=== PATIENT | male | born 1960 | race Caucasian/White ===

== ENCOUNTER → 2019-12-10 | Day surgery (SDC) | payer BC ==
[2019-12-09 10:30] VITALS: BMI 26.2
[~2019-12-10] MED LIST: MIDAZOLAM 2 MG/2 ML VIAL IV ONE; SODIUM CHLORIDE 0.9% 500 ML 500 ML IV ONE; fentaNYL (PF) 50 MCG/ML 2 ML AMP IV ONE; fentaNYL (PF) 50 MCG/ML 2 ML AMP ONE
[2019-12-10 08:03] VITALS: TEMP 98.3
[2019-12-10 08:09] LABS: Prothrombin Time 19.4 sec (9.0-12.0)
[2019-12-10] MEDS: BENZOCAINE SPRAY 1 CAN MUCOUS MEM ONE ×2 (08:41→08:59)
[2019-12-10 09:10] VITALS: RESP 16
--- NOTE | 2019-12-10 09:43 | ECHOT ---
TRANSESOPHAGEAL ECHOCARDIOGRAM DATE OF SERVICE: December 10, 2019 PERFORMING PHYSICIAN: Fili Vines MD. PROCEDURE PERFORMED: Transesophageal echocardiogram. INDICATION: This is a pleasant 59-year-old gentleman with atrial flutter, who is going to undergo ablation by Dr. Núñez in the next few weeks. The transesophageal echocardiogram to rule out any left atrial appendage thrombus. COMPLICATION: None. LEVEL OF SEDATION: Moderate with a sedation length of 15 minutes. PROCEDURE DESCRIPTION: After obtaining an informed consent, the patient was brought to the transesophageal echocardiogram suite. A pulse oximetry and heart rate monitors were attached to the patient. Subsequently, a bite guard was placed. The transesophageal echocardiogram probe was advanced through the bite guard to the mid esophagus where 2D echocardiogram images, as well as color Doppler, pulse Doppler, and continuous-wave Doppler were obtained from various angles. Particular attention was paid to the appendage. The procedure was completed without any complication. FINDINGS: The left ventricular dimension and systolic function appeared to be within normal limits. The ejection fraction appeared to be in the range of 50% to 55%. Right ventricle appeared to be of normal size and function. The left atrium appeared to be dilated. The aortic valve is trileaflet valve without stenosis or regurgitation. The mitral valve appeared to be repaired valve with evidence of moderate mitral regurgitation in anteriorly directed jet. The tricuspid valve appeared to be also regurgitant in the moderate range. The pulmonary artery systolic pressure was calculated to be 38 mmHg. CONCLUSION: 1. Intact left atrial appendage without any evidence of thrombus. 2. Intact interatrial septum without any evidence of shunt. 3. Severely dilated left atrium. 4. Normal left ventricular dimension and systolic function. 5. Normal right ventricular dimension and systolic function. 6. Trileaflet aortic valve without stenosis or regurgitation. 7. Repaired mitral valve with evidence of moderate mitral regurgitation in anteriorly directed jet. 8. Moderate tricuspid regurgitation. 9. Mild pulmonary hypertension. 10.Normal aortic root dimension. 11.No evidence of pericardial effusion. MMODL / IJN: [id number] /
[2019-12-10 10:04] VITALS: BP 115/79; PULSE 74
== END ==
LOC: CATHCVL 07:26
PROVIDERS: ATTEND Internal Medicine Interventional Cardiology
DX: I48.3 Typical atrial flutter (principal); I08.1 Rheumatic disorders of both mitral and tricuspid valves; I27.20 Pulmonary hypertension, unspecified; Z98.890 Other specified postprocedural states; Z82.49 Family history of ischemic heart disease and other diseases of the circulatory system
CPT/HCPCS: 93312; 93320; 93325; 85610; J2250; J3010

== ENCOUNTER 2019-12-13 02:17 | Observation (INO) | payer BC ==
[2019-12-13] MEDS ORDERED: RX INFO: IV CONTRAST WAS GIVEN 1 EACH MISC MISCELLANE PRN (02:22)
[2019-12-13 02:46] LABS: Basophils % (A) 0 %; Eosinophils # (A) 0.1 k/uL (0-0.7); Eosinophils % (A) 1 %; HCT 41.3 % (39.0-53.0); HGB 13.8 gm/dL (13.0-17.5); Lymphocytes # (A) 1.3 k/uL (1.0-4.8); Lymphocytes % (A) 13 %; MCH 29.8 pg (25.0-35.0); MCHC 33.3 g/dL (31.0-37.0); MCV 89.4 fL (80.0-100.0); Mean Platelet Volume 6.8; Monocytes # (A) 0.5 k/uL (0-1.0); Monocytes % (A) 5 %; Neutrophils % (A) 79 %; Platelet Count 221 k/uL (150-450); RBC 4.62 m/uL (4.30-5.90); RDW 13.3 % (11.5-15.5); WBC 10.1 k/uL (3.8-10.6)
[2019-12-13 02:55] LABS: INR 2.2 (<1.2); Partial Thromboplastin Time 33.4 sec (22.0-30.0); Prothrombin Time 21.7 sec (9.0-12.0)
--- NOTE | 2019-12-13 03:03 | CT ---
EXAMINATION TYPE: CT chest w con DATE OF EXAM: 12/13/2019 COMPARISON: None HISTORY: chest pain CT DLP: 412.7 mGycm Automated exposure control for dose reduction was used. CONTRAST: Performed with IV Contrast, patient injected with 100 mL of Isovue 300. Multiple axial sections were obtained from the thoracic inlet to the diaphragm with intravenous contr ast. There is coarse interstitial density and atelectasis at the posterior lung bases. There is small righ t pleural effusion. There is no evidence of a pulmonary mass. There is no mediastinal adenopathy. The re are no hilar masses. Heart size is top normal. There is no pericardial effusion. Thoracic aorta sh ows no aneurysm or dissection. There is spurring in the thoracic spine. The ribs appear intact. Upper abdominal soft tissues are int act. There is 2 cm cyst lower pole right kidney. Appendix appears normal. IMPRESSION: Interstitial infiltrates and atelectasis at the posterior lung bases. Small right pleural effusion. C ardiomegaly.
[2019-12-13 03:04] LABS: ALT 14 U/L (4-49); AST 28 U/L (17-59); African American GFR (CKD) >90 (>60 ml/min/1.73 sqM); Alkaline Phosphatase 59 U/L (38-126); Anion Gap 6 mmol/L; Blood Urea Nitrogen 18 mg/dL (9-20); Calcium 8.7 mg/dL (8.4-10.2); Carbon Dioxide 31 mmol/L (22-30); Chloride 100 mmol/L (98-107); Glucose 117 mg/dL (74-99); Magnesium 1.8 mg/dL (1.6-2.3); Non-African American GFR(CKD) >90 (>60 ml/min/1.73 sqM); Potassium 3.4 mmol/L (3.5-5.1); Sodium 137 mmol/L (137-145); Total Bilirubin 1.1 mg/dL (0.2-1.3); Total Protein 6.8 g/dL (6.3-8.2)
[2019-12-13] MEDS ORDERED: NALOXONE 0.4 MG/ML 1 ML VIAL IV PRN (03:58)
--- NOTE | 2019-12-13 03:58 | ED ---
Chest Pain HPI - General Chief Complaint: Chest Pain Stated Complaint: Postop chest pain following ablation Time Seen by Provider: 12/13/19 02:25 Source: patient - History of Present Illness Initial Comments: The patient is a 58-year-old male with past history of A. fib who had a recent ablation done on by Dr. Rowe. States that this was his second ablation. He went home and had some mild chest discomfort however he states that the pain became worse today. States that it gets worse when he is taking a deep breath or lying flat. He got a hold of Dr. Nguyen and told him about his symptoms. Dr. Nguyen informed him that if he had worsening chest pain he should go in to the emergency room. He denies any shortness of breath. Did not take any medications for his pain. The patient is on Coumadin for his history of A. fib. States he's been taking the medications as directed. He denies any calf pain or swelling. No history of DVT or PE. No ripping or tearing sensation to his back. Denies hemoptysis or hematemesis. No fevers or chills. There are no alleviating, precipitating or modifying factors - Related Data Home Medications Medication Instructions Recorded Confirmed Warfarin [Coumadin] 5 mg PO HS 12/13/19 12/13/19 Allergies Allergy/AdvReac Type Severity Reaction Status Date / Time No Known Allergies Allergy Verified 12/13/19 12:41 Review of Systems ROS Statement: Those systems with pertinent positive or pertinent negative responses have been documented in the HPI. ROS Other: All systems not noted in ROS Statement are negative. EKG Findings - EKG Comments: EKG Findings:: EKG demonstrates a sinus tachycardia with a ventricular rate of 56. NJ interval 154. QRS 86. QTC of 441. No acute ST segment elevations or depressions concerning for ischemic changes. Q wave in inferior leads 3. Past Medical History Past Medical History: Atrial Flutter Additional Past Medical History / Comment(s): States irregular H/R. History of Any Multi-Drug Resistant Organisms: None Reported Past Surgical History: Ablation Additional Past Surgical History / Comment(s): Mitral valve repair. Past Anesthesia/Blood Transfusion Reactions: No Reported Reaction Past Psychological History: No Psychological Hx Reported Smoking Status: Never smoker Past Alcohol Use History: Occasional Past Drug Use History: None Reported - Past Family History Mother Family Medical History: No Reported History General Exam General appearance: alert, in no apparent distress Head exam: Present: atraumatic, normocephalic, normal inspection Eye exam: Present: normal appearance, PERRL, EOMI. Absent: scleral icterus, conjunctival injection, periorbital swelling ENT exam: Present: normal exam, mucous membranes moist Neck exam: Present: normal inspection. Absent: tenderness, meningismus, lymphadenopathy Respiratory exam: Present: normal lung sounds bilaterally. Absent: respiratory distress, wheezes, rales, rhonchi, stridor Cardiovascular Exam: Present: regular rate, normal rhythm, normal heart sounds. Absent: systolic murmur, diastolic murmur, rubs, gallop, clicks GI/Abdominal exam: Present: soft, normal bowel sounds. Absent: distended, tenderness, guarding, rebound, rigid Extremities exam: Present: normal inspection, full ROM, normal capillary refill. Absent: tenderness, pedal edema, joint swelling, calf tenderness Back exam: Present: normal inspection Neurological exam: Present: alert, oriented X3, CN II-XII intact Psychiatric exam: Present: normal affect, normal mood Skin exam: Present: warm, dry, intact, normal color. Absent: rash Course Vital Signs 12/13/19 12/13/19 12/13/19 02:24 02:57 04:00 Temperature 97.6 F Pulse Rate 56 L 59 L 58 L Pulse Rate [ [place] Loader ] Respiratory 18 14 16 Rate Blood Pressure 135/77 120/75 117/77 Blood Pressure [Right Arm Supine] O2 Sat by Pulse 98 100 98 Oximetry 12/13/19 12/13/19 12/13/19 05:29 07:57 08:00 Temperature 98.5 F Pulse Rate 63 Pulse Rate [ 63 63 [place] Load[place] ] Respiratory 12 18 Rate Blood Pressure 112/76 Blood Pressure 116/80 [Right Arm Supine] O2 Sat by Pulse 94 L 96 Oximetry 12/13/19 12/13/19 12/13/19 10:24 12:00 13:48 Temperature 98.5 F 98.5 F 97.7 F Pulse Rate 67 70 Pulse Rate [ 63 [place] Loader ] Respiratory 18 18 18 Rate Blood Pressure 116/70 112/80 Blood Pressure 116/80 [Right Arm Supine] O2 Sat by Pulse 96 97 100 Oximetry 12/13/19 16:35 Temperature 98.6 F Pulse Rate 68 Pulse Rate [ [place] Loader ] Respiratory 18 Rate Blood Pressure 116/74 Blood Pressure [Right Arm Supine] O2 Sat by Pulse 100 Oximetry Chest Pain MDM - MDM Upon arrival the patient is placed into room 5. A thorough history and physical exam was performed. Peripheral IV was established. I did offer the patient something for pain control however he states that he was currently asymptomatic. Laboratory studies demonstrated a INR of 2.2 which is therapeutic for the patient. He has a history of mitral valve repair but no replacement. Troponin is elevated at 0.315. CT of the chest is performed to evaluate for fistula which demonstrates interstitial infiltrates and atelectasis at the posterior lung bases. Small right pleural effusion with cardiomegaly. I discussed results with the patient. I did recommend hospital admission for echo and cardiology consultation. The patient agreed to this. He is currently awaiting a bed on the floor in stable condition Disposition Clinical Impression: Chest pain, Status post ablation of atrial fibrillation, NSTEMI (non-ST elevated myocardial infarction) Disposition: ADMITTED IP TO THIS HOSP Condition: Stable Is patient prescribed a controlled substance at d/c from ED?: No Decision to Admit Reason: Admit from EC Decision Date: 12/13/19 Decision Time: 03:58
[2019-12-13 07:59] VITALS: RESP 18
[2019-12-13] MEDS ORDERED: ACETAMINOPHEN TAB 500 MG TAB PO PRN (09:52)
--- NOTE | 2019-12-13 12:19 | P.CRDCN ---
History of Present Illness Consult date: 12/13/19 Chief complaint: Chest pain History of present illness: This is a very pleasant 59-year-old gentleman with a past medical history significant for atrial flutter, known mitral valve disease and status post repair, who underwent 2 days ago and ablation of atrial flutter. The patient presented to the hospital complaining of chest discomfort. He described the discomfort as sharp, in the mid of the chest, without any radiation, and clearly stated that is worse with the deep breath and better with resting. The EKG showed sinus rhythm with sinus bradycardia and diffuse nonspecific ST and T wave abnormalities. No prior history of coronary artery disease or coronary revascularization. The cardiac enzymes came in to be slightly abnormal but that could be related to the ablation itself. Currently the patient is chest pain- free after he was given Tylenol. The patient was seen in the emergency department. The rest of the blood work came in to be unremarkable. The patient stated that he has been up and around walking in the hallway and he is completely asymptomatic and would like to be discharged home. I am going to obtain an echocardiogram was Doppler of chest to rule out any pericardial effusion, if the echo came in to be unremarkable the patient possibly can be discharged home and follow-up with Dr. Núñez. Past Medical History Past Medical History: Atrial Flutter Additional Past Medical History / Comment(s): States irregular H/R. History of Any Multi-Drug Resistant Organisms: None Reported Past Surgical History: Ablation Additional Past Surgical History / Comment(s): Mitral valve repair 2003. ablation 12/11/2019 Dr. Núñez Past Anesthesia/Blood Transfusion Reactions: No Reported Reaction Smoking Status: Never smoker - Past Family History Mother Family Medical History: No Reported History Medications and Allergies Home Medications Medication Instructions Recorded Confirmed Type Warfarin [Coumadin] 5 mg PO DAILY@1800 tab 12/12/19 12/13/19 Rx Allergies Allergy/AdvReac Type Severity Reaction Status Date / Time No Known Allergies Allergy Verified 12/10/19 07:46 Physical Exam Vitals: Vital Signs Temp Pulse Pulse Resp BP BP Pulse Ox 12/13/19 12:00 98.5 F 67 18 116/70 97 12/13/19 10:24 98.5 F 63 18 116/80 96 12/13/19 08:00 63 12/13/19 07:57 98.5 F 63 18 116/80 96 12/13/19 05:29 63 12 112/76 94 L 12/13/19 04:00 58 L 16 117/77 98 12/13/19 02:57 59 L 14 120/75 100 12/13/19 02:24 97.6 F 56 L 18 135/77 98 Intake and Output 12/12/19 12/13/19 12/13/19 22:59 06:59 14:59 Other: Weight 77.111 kg 77.111 kg - Constitutional General appearance: no acute distress - Respiratory Respiratory: bilateral: CTA - Cardiovascular Rhythm: regular Heart sounds: normal: S1, S2 Abnormal Heart Sounds: systolic murmur Results 12/13/19 02:30 12/13/19 02:30 Cardiac Enzymes 12/13/19 12/13/19 12/13/19 Range/Units 02:30 02:30 07:51 AST 28 (17-59) U/L Troponin I 0.315 H* 0.231 H* (0.000-0.034) ng/mL Coagulation 12/13/19 Range/Units 02:30 PT 21.7 H (9.0-12.0) sec APTT 33.4 H (22.0-30.0) sec CBC 12/13/19 Range/Units 02:30 WBC 10.1 (3.8-10.6) k/uL RBC 4.62 (4.30-5.90) m/uL Hgb 13.8 (13.0-17.5) gm/dL Hct 41.3 (39.0-53.0) % Plt Count 221 (150-450) k/uL Comprehensive Metabolic Panel 12/13/19 Range/Units 02:30 Sodium 137 (137-145) mmol/L Potassium 3.4 L (3.5-5.1) mmol/L Chloride 100 (98-107) mmol/L Carbon Dioxide 31 H (22-30) mmol/L BUN 18 (9-20) mg/dL Creatinine 0.94 (0.66-1.25) mg/dL Glucose 117 H (74-99) mg/dL Calcium 8.7 (8.4-10.2) mg/dL AST 28 (17-59) U/L ALT 14 (4-49) U/L Alkaline Phosphatase 59 (38-126) U/L Total Protein 6.8 (6.3-8.2) g/dL Albumin 4.0 (3.5-5.0) g/dL Current Medications Generic Name Dose Route Start Last Admin Trade Name Marcos PRN Reason Stop Dose Admin Acetaminophen 1,000 mg 12/13/19 09:52 12/13/19 10:01 Tylenol Tab PO 1,000 mg Q6HR PRN Administration Fever and/ or Pain Miscellaneous Information 1 each 12/13/19 02:22 12/13/19 02:59 Rx Info: Iv Contrast Was Given MISCELLANE 12/15/19 02:24 1 each DAILY PRN Administration Per Protocol Naloxone HCl 0.2 mg 12/13/19 03:58 Narcan IV Q2M PRN Opioid Reversal Warfarin Sodium 5 mg 12/13/19 18:00 Coumadin PO DAILY@1800 [facility] Protocol Intake and Output 12/12/19 12/13/19 12/13/19 22:59 06:59 14:59 Other: Weight 77.111 kg 77.111 kg Patient Weight 12/14/19 06:59 Weight 77.111 kg 12/13/19 02:30 12/13/19 02:30 Assessment and Plan Assessment: Assessment #1 atypical chest discomfort #2 status post atrial flutter ablation #3 history of mitral valve repair Plan #1 be abnormal troponin is likely related to the ablation #2 rule out pericardial effusion. I will obtain an echocardiogram was Doppler #3 if the patient continues to be asymptomatic and no evidence of pericardial effusion by echo he possibly can be discharged home
--- NOTE | 2019-12-13 15:56 | ECHOF ---
Referral Reason:chest pain post ablation MEASUREMENTS -------- HEIGHT: 170.2 cm WEIGHT: 77.1 kg BP: 121/75 RVIDd: 2.9 cm (< 3.3) IVSd: 1.1 cm (0.6 - 1.1) LVIDd: 4.1 cm (3.9 - 5.3) LVPWd: 1.2 cm (0.6 - 1.1) IVSs: 1.6 cm LVIDs: 2.4 cm LVPWs: 1.7 cm LAESV Index (A-L): 31.37 ml/m Ao Diam: 3.2 cm (2.0 - 3.7) AV Cusp: 2.0 cm (1.5 - 2.6) MV E Martin: 1.49 m/s MV DecT: 327 ms MV A Martin: 0.70 m/s MV E/A Ratio: 2.14 RAP: 5.00 mmHg RVSP: 28.88 mmHg FINDINGS -------- Sinus rhythm. This was a technically good study. The left ventricular size is normal. There is mild concentric left ventricular hypertrophy. Overa ll left ventricular systolic function is low-normal with, an EF between 50 - 55 %. Septal wall twan on is delayed and consistent with prior cardiac surgery. The right ventricle is normal in size. LA is midly dilated 29-33ml/m2. The right atrial size is normal. Interatrial and interventricular septum intact. The aortic valve is trileaflet and appears structurally normal. There is no evidence of aortic regu rgitation. There is no evidence of aortic stenosis. Mild mitral regurgitation is present. MV Repair. Mild tricuspid regurgitation present. There is no evidence of pulmonary hypertension. The right v entricular systolic pressure, as measured by Doppler, is 28.88mmHg. Trace/mild (physiologic) pulmonic regurgitation. The aortic root size is normal. IVC Not well visulized. There is no pericardial effusion. CONCLUSIONS -------- 1. Sinus rhythm. 2. This was a technically good study. 3. The left ventricular size is normal. 4. There is mild concentric left ventricular hypertrophy. 5. Overall left ventricular systolic function is low-normal with, an EF between 50 - 55 %. 6. Septal wall motion is delayed and consistent with prior cardiac surgery. 7. The right ventricle is normal in size. 8. LA is midly dilated 29-33ml/m2. 9. The right atrial size is normal. 10. Interatrial and interventricular septum intact. 11. The aortic valve is trileaflet and appears structurally normal. 12. There is no evidence of aortic regurgitation. 13. There is no evidence of aortic stenosis. 14. Mild mitral regurgitation is present. 15. MV Repair. 16. Mild tricuspid regurgitation present. 17. There is no evidence of pulmonary hypertension. 18. The right ventricular systolic pressure, as measured by Doppler, is 28.88mmHg. 19. Trace/mild (physiologic) pulmonic regurgitation. 20. The aortic root size is normal. 21. IVC Not well visulized. 22. There is no pericardial effusion. PAPERHANGER SUPERVISOR: Phyllis Perdue RDCS
--- NOTE | 2019-12-13 16:35 | P.HPIM ---
History of Present Illness Present of pleasant 59-year-old gentleman came in with compensative chest pain which she is sharp no radiation nonradiating mild worsening with deep breathing not in not associated with food denied any lightheadedness diaphoresis ass ociated with that. Patient denied any cough or shortness of breath chest x-ray did not show any pneumonia. Patient has the history of atrial flutter patient underwent the ablation couple days ago. Ruled out acute cardio syndromes patient does have mildly elevated troponins which is believed secondary to ablation EKG did not show any acute ST-T wave changes cardiology recommended an echocardiogram with doesn't show any wall significant wall motion abnormalities or pericardial effusion patient can be discharged. Echocardiogram did not show any significant abnormality. And normal ejection fraction. Patient will be discharged on as needed Tylenol for pain patient pain is controlled with Tylenol appears to be musculoskeletal Review of Systems REVIEW OF SYSTEMS: CONSTITUTIONAL: No fever, no malaise, no fatigue. HEENT: No recent visual problems or hearing problems. Denied any sore throat. CARDIOVASCULAR: As mentioned in HPI PULMONARY: No shortness of breath, no cough, no hemoptysis. GASTROINTESTINAL: No diarrhea, no nausea, no vomiting, no abdominal pain. NEUROLOGICAL: No headaches, no weakness, no numbness. HEMATOLOGICAL: Denies any bleeding or petechiae. GENITOURINARY: Denies any burning micturition, frequency, or urgency. MUSCULOSKELETAL/RHEUMATOLOGICAL: Denies any joint pain, swelling, or any muscle pain. ENDOCRINE: Denies any polyuria or polydipsia. The rest of the 14-point review of systems is negative. Past Medical History Past Medical History: Atrial Flutter Additional Past Medical History / Comment(s): States irregular H/R. History of Any Multi-Drug Resistant Organisms: None Reported Past Surgical History: Ablation Additional Past Surgical History / Comment(s): Mitral valve repair 2003. ablation 12/11/2019 Dr. Núñez Past Anesthesia/Blood Transfusion Reactions: No Reported Reaction Smoking Status: Never smoker - Past Family History Mother Family Medical History: No Reported History Medications and Allergies Home Medications Medication Instructions Recorded Confirmed Type Warfarin [Coumadin] 5 mg PO HS 12/13/19 12/13/19 History Allergies Allergy/AdvReac Type Severity Reaction Status Date / Time No Known Allergies Allergy Verified 12/13/19 12:41 Physical Exam Vitals: Vital Signs Temp Pulse Pulse Resp BP BP Pulse Ox 12/13/19 13:48 97.7 F 70 18 112/80 100 12/13/19 12:00 98.5 F 67 18 116/70 97 12/13/19 10:24 98.5 F 63 18 116/80 96 12/13/19 08:00 63 12/13/19 07:57 98.5 F 63 18 116/80 96 12/13/19 05:29 63 12 112/76 94 L 12/13/19 04:00 58 L 16 117/77 98 12/13/19 02:57 59 L 14 120/75 100 12/13/19 02:24 97.6 F 56 L 18 135/77 98 Intake and Output 12/13/19 12/13/19 12/13/19 06:59 14:59 22:59 Other: Weight 77.111 kg 77.111 kg PHYSICAL EXAMINATION: GENERAL: The patient is alert and oriented x3, not in any acute distress. Well developed, well nourished. HEENT: Pupils are round and equally reacting to light. EOMI. No scleral icterus. No conjunctival pallor. Normocephalic, atraumatic. No pharyngeal erythema. No thyromegaly. CARDIOVASCULAR: S1 and S2 present. No murmurs, rubs, or gallops. PULMONARY: Chest is clear to auscultation, no wheezing or crackles. ABDOMEN: Soft, nontender, nondistended, normoactive bowel sounds. No palpable organomegaly. MUSCULOSKELETAL: No joint swelling or deformity. EXTREMITIES: No cyanosis, clubbing, or pedal edema. NEUROLOGICAL: Gross neurological examination did not reveal any focal deficits. SKIN: No rashes. Results CBC & Chem 7: 12/13/19 02:30 12/13/19 02:30 Labs: Abnormal Lab Results - Last 24 Hours (Table) 12/13/19 12/13/19 12/13/19 Range/Units 02:30 02:30 02:30 Neutrophils # 8.0 H (1.3-7.7) k/uL PT 21.7 H (9.0-12.0) sec INR 2.2 H (<1.2) APTT 33.4 H (22.0-30.0) sec Potassium 3.4 L (3.5-5.1) mmol/L Carbon Dioxide 31 H (22-30) mmol/L Glucose 117 H (74-99) mg/dL Troponin I (0.000-0.034) ng/mL 12/13/19 12/13/19 Range/Units 02:30 07:51 Neutrophils # (1.3-7.7) k/uL PT (9.0-12.0) sec INR (<1.2) APTT (22.0-30.0) sec Potassium (3.5-5.1) mmol/L Carbon Dioxide (22-30) mmol/L Glucose (74-99) mg/dL Troponin I 0.315 H* 0.231 H* (0.000-0.034) ng/mL Thrombosis Risk Factor Assmnt - Choose All That Apply Any of the Below Risk Factors Present?: Yes Each Factor Represents 1 point: Age 41-60 years, Obesity (BMI >25) Other Risk Factors: No Other congenital or acquired thrombophilia - If yes, enter type in comment: No Thrombosis Risk Factor Assessment Total Risk Factor Score: 2 Thrombosis Risk Factor Assessment Level: Low Risk Assessment and Plan Plan: -Chest pain: Rule out unstable angina, acute coronary syndromes, pneumonia. Probably musculoskeletal. -Mild elevated troponin secondary to recent ablation for atrial flutter. Patient is on anticoagulation with Coumadin and therapeutic on Coumadin -Mitral prolapse with repair in 2003. Patient is being discharged today
--- NOTE | 2019-12-13 16:36 | P.DS ---
Providers Date of admission: 12/13/19 03:58 Attending physician: Phong Gauthier Consults: 12/13/19 04:00 Consult Physician Urgent Consulting Provider: [facility] Consult Reason/Comments: acute chest pain, s/p ablation, NSTEMI Do you want consulting provider notified?: Yes Primary care physician: Ky Bojorquez Hospital Course: Please refer to my HPI for further details Patient Condition at Discharge: Stable Plan - Discharge Summary Discharge Rx Participant: No New Discharge Prescriptions: No Action Warfarin [Coumadin] 5 mg PO HS Discharge Medication List Warfarin [Coumadin] 5 mg PO HS 12/13/19 [History] Follow up Appointment(s)/Referral(s): Ky Bojorquez MD [Primary Care Provider] - 3 Days
[2019-12-13 16:48] VITALS: BP 116/74; PULSE 68; TEMP 98.6
[2019-12-13] MEDS ORDERED: WARFARIN 5 MG TAB PO SCH (18:00)
--- NOTE | 2019-12-17 06:35 | CDI ---
Documentation Clarification Form Date: 12/17/19 From: Lucia Rivera Phone: If you have a question about this query, please contact Mee Allen, Joinery Patternmaker at [phone] between 8am and 5pm. Admit Date: 12/13/19 Discharge Date: 12/13/19 Patient Name: Elia Hackett Visit Number: [id number] ATTENTION: The Clinical Documentation Specialists (CDI) and [facility] Coding Staff appreciate your assistance in clarifying documentation. Please respond to the clarification below the line at the bottom and electronically sign. The CDI & [facility] Coding staff will review the response and follow-up if needed. Please note: Queries are made part of the Legal Health Record. If you have any questions, please contact the author of this message via ITS. Dear Dr. Mathieu Santacruz, Atrial fibrillation documented in the ED record. History/Risk Factors: Hx of atrial flutter, hx of mitral repair Clinical Indicators: Presents with chest pain following ablation. EKG/telemetry: sinus tachycardia w ventricular rate of 56. PA interval 54. QRS 86. QTC of 441. No acute ST segment elevations or depressions concerning for ischemic changes. Q wave in inferior leads 3. Treatment: oral Coumadin In your professional opinion, can you please clarify the type of Atrial Fibrillation, if known? Chronic Permanent Paroxysmal Persistent, longstanding Persistent, other Persistent, permanent Other, please specify Unable to determine Unable to determine MTDD
== END 2019-12-13 16:41 | disposition home or self-care (01) ==
LOC: EC 02:17 → 3SCARD 03:58 → INTOOBSV 03:58 → UNDODISIN 13:36
PROVIDERS: ADMIT Hospitalist; ATTEND Hospitalist
DX: R07.89 Other chest pain (principal); I48.91 Unspecified atrial fibrillation; I08.1 Rheumatic disorders of both mitral and tricuspid valves; R79.89 Other specified abnormal findings of blood chemistry; J90 Pleural effusion, not elsewhere classified; J98.11 Atelectasis; E66.9 Obesity, unspecified; Z79.01 Long term (current) use of anticoagulants; Z98.890 Other specified postprocedural states
CPT/HCPCS: 99285; 36415; 93005; 93306; 83880; 80053; 85652; 83735; 84484; 85025; 85610; 85730; 71260; G0378; Q9967

== ENCOUNTER 2021-11-04 13:22 | Emergency (ER) | payer BC ==
[2021-11-04 13:34] VITALS: RESP 18; TEMP 98.1
--- NOTE | 2021-11-04 13:57 | ED ---
General Adult HPI - General Chief complaint: Altered Mental Status Stated complaint: memory issue Time Seen by Provider: 11/04/21 13:37 Source: patient Mode of arrival: ambulatory Limitations: no limitations - History of Present Illness Initial comments: Dictation was produced using [employer] dictation software. please excuse any grammatical, word or spelling errors. Chief Complaint: Patient is 61-year-old male presents to the emergency department for episode of altered mental status History of Present Illness: Patient is a 61-year-old male has past medical history of a flutter. He takes any coagulation medications. Patient states today he had a brief episode of confusion. Patient suffered a loss of a close friend. He states that he has been foggy in the brain ever since. Today he was with a coworker when he allegedly displayed some confusion about the event. The person who witnessed the confusion called patient's and patient's spoke with family members were in the medical field. They're instructed to come to the emergency department. Patient states he hasn't really quite remember exactly what happened today. He states that it probably was confused. Does however remember everything that happened with his close friend that recently. Patient denies any issues at this time. He takes anticoagulation medications for valve repair. The ROS documented in this emergency department record has been reviewed and confirmed by me. Those systems with pertinent positive or negative responses have been documented in the HPI. All other systems are other negative and/or noncontributory. PHYSICAL EXAM: General Impression: Alert and oriented x3, not in acute distress HEENT: Normocephalic atraumatic, extra-ocular movements intact, pupils equal and reactive to light bilaterally, mucous membranes moist. Cardiovascular: Heart regular rate and rhythm Chest: Able to complete full sentences, no retractions, no tachypnea Abdomen: abdomen soft, non-tender, non-distended, no organomegaly Musculoskeletal: Pulses present and equal in all extremities, no peripheral edema Motor: no focal deficits noted Neurological: CN II-XII grossly intact, no focal motor or sensory deficits noted, NIH 0 Skin: Intact with no visualized rashes Psych: Normal affect and mood ED course: 61-year-old male presents to the emergency department for brief episode of altered mental status described as confusion. There was no such history of extremity weakness, facial droop or sensory deficit. Vital Signs upon arrival are within acceptable limits. Labs were evaluation obtained. CBC, coag panel, metabolic panel is unremarkable. Computed tomography scan of the brain is unremarkable. Patient was or the emergency department for approximately 2 hours and 30 minutes. His reevaluated at the bedside at 3:51 PM. Patient's symptoms are more likely to be cement is a chin event considering that he had sprains a recent stressor in his life. Confusion was described more as brief amnesia as opposed to dysarthria or aphasia. There is no history to suggest that he had any extremity weakness or sensory deficit. At this point patient's well-appearing. He has no high-risk features. Patient to be discharged told to follow-up with primary care doctor with strict return precautions. Patient and at the bedside are agreeable to plan. EKG interpretation: Ventricular rate 71, atrial fibrillation, QRS 90, QTc 449. No ID prolongation, no QTC prolongation, no ST or T-wave changes noted. EKG compared to. December 13 2019 showing no changes. - Related Data Home Medications Medication Instructions Recorded Confirmed Warfarin [Coumadin] 2.5 mg PO MOWEFR@209912/13/19 11/04/21 Metoprolol Tartrate [Lopressor] 12.5 mg PO DAILY 11/04/21 11/04/21 Warfarin [Coumadin] 5 mg PO SUTUTHSA@2100 11/04/21 11/04/21 Allergies Allergy/AdvReac Type Severity Reaction Status Date / Time No Known Allergies Allergy Verified 11/04/21 13:34 Review of Systems ROS Statement: Those systems with pertinent positive or pertinent negative responses have been documented in the HPI. ROS Other: All systems not noted in ROS Statement are negative. Past Medical History Past Medical History: Atrial Flutter Additional Past Medical History / Comment(s): States irregular H/R. History of Any Multi-Drug Resistant Organisms: None Reported Past Surgical History: Ablation Additional Past Surgical History / Comment(s): Mitral valve repair. Past Anesthesia/Blood Transfusion Reactions: No Reported Reaction Past Psychological History: No Psychological Hx Reported Smoking Status: Never smoker Past Alcohol Use History: Occasional Past Drug Use History: None Reported - Past Family History Mother Family Medical History: No Reported History General Exam Limitations: no limitations Course Vital Signs 11/04/21 13:31 Temperature 98.1 F Pulse Rate 83 Respiratory 18 Rate Blood Pressure 155/77 O2 Sat by Pulse 93 L Oximetry Medical Decision Making - Lab Data Result diagrams: 11/04/21 14:47 11/04/21 14:47 Lab Results 11/04/21 11/04/21 11/04/21 Range/Units 14:47 14:47 15:32 WBC 5.4 (3.8-10.6) k/uL RBC 4.68 (4.30-5.90) m/uL Hgb 14.7 (13.0-17.5) gm/dL Hct 43.4 (39.0-53.0) % MCV 92.9 (80.0-100.0) fL MCH 31.4 (25.0-35.0) pg MCHC 33.8 (31.0-37.0) g/dL RDW 13.7 (11.5-15.5) % Plt Count 253 (150-450) k/uL MPV 6.8 Neutrophils % 69 % Lymphocytes % 21 % Monocytes % 6 % Eosinophils % 2 % Basophils % 1 % Neutrophils # 3.7 (1.3-7.7) k/uL Lymphocytes # 1.1 (1.0-4.8) k/uL Monocytes # 0.3 (0-1.0) k/uL Eosinophils # 0.1 (0-0.7) k/uL Basophils # 0.1 (0-0.2) k/uL PT 18.6 H (9.0-12.0) sec INR 1.9 H (<1.2) APTT 32.6 H (22.0-30.0) sec Sodium 138 (137-145) mmol/L Potassium 4.3 (3.5-5.1) mmol/L Chloride 104 (98-107) mmol/L Carbon Dioxide 29 (22-30) mmol/L Anion Gap 5 mmol/L BUN 13 (9-20) mg/dL Creatinine 0.91 (0.66-1.25) mg/dL Est GFR (CKD-EPI)AfAm >90 (>60 ml/min/1.73 sqM) Est GFR (CKD-EPI)NonAf >90 (>60 ml/min/1.73 sqM) Glucose 100 H (74-99) mg/dL Calcium 9.3 (8.4-10.2) mg/dL Disposition Clinical Impression: Confusion Disposition: HOME SELF-CARE Condition: Fair Instructions (If sedation given, give patient instructions): Transient Ischemic Attack (ED) Is patient prescribed a controlled substance at d/c from ED?: No Referrals: Ky Bojorquez MD [Primary Care Provider] - 1-2 days
[2021-11-04 14:54] LABS: Basophils # (A) 0.1 k/uL (0-0.2); Basophils % (A) 1 %; Eosinophils # (A) 0.1 k/uL (0-0.7); Eosinophils % (A) 2 %; HCT 43.4 % (39.0-53.0); HGB 14.7 gm/dL (13.0-17.5); Lymphocytes # (A) 1.1 k/uL (1.0-4.8); Lymphocytes % (A) 21 %; MCH 31.4 pg (25.0-35.0); MCHC 33.8 g/dL (31.0-37.0); MCV 92.9 fL (80.0-100.0); Mean Platelet Volume 6.8; Monocytes # (A) 0.3 k/uL (0-1.0); Monocytes % (A) 6 %; Neutrophils # (A) 3.7 k/uL (1.3-7.7); Neutrophils % (A) 69 %; Platelet Count 253 k/uL (150-450); RBC 4.68 m/uL (4.30-5.90); RDW 13.7 % (11.5-15.5); WBC 5.4 k/uL (3.8-10.6)
[2021-11-04 15:07] LABS: African American GFR (CKD) >90 (>60 ml/min/1.73 sqM); Anion Gap 5 mmol/L; Blood Urea Nitrogen 13 mg/dL (9-20); Calcium 9.3 mg/dL (8.4-10.2); Carbon Dioxide 29 mmol/L (22-30); Chloride 104 mmol/L (98-107); Glucose 100 mg/dL (74-99); Non-African American GFR(CKD) >90 (>60 ml/min/1.73 sqM); Potassium 4.3 mmol/L (3.5-5.1); Sodium 138 mmol/L (137-145)
--- NOTE | 2021-11-04 15:16 | CT ---
EXAMINATION TYPE: CT brain wo con DATE OF EXAM: 11/04/2021 HISTORY: confusion CT DLP: 1141.4 mGycm. Automated Exposure Control for Dose Reduction was Utilized. TECHNIQUE: CT scan of the head is performed without contrast. COMPARISON: None. FINDINGS: There is no acute intracranial hemorrhage or midline shift identified. There is mild diff use ventricular and sulcal prominence consistent with diffuse age-related cerebral atrophy. Amato-whit e matter differentiation fairly well maintained. The globes are intact and the visualized sinuses ar e clear. Nasal septum deviated to right of midline. No suspicious opacification of mastoid air cell s bilaterally. IMPRESSION: No acute intracranial hemorrhage or midline shift.
[2021-11-04 15:47] LABS: INR 1.9 (<1.2); Partial Thromboplastin Time 32.6 sec (22.0-30.0); Prothrombin Time 18.6 sec (9.0-12.0)
[2021-11-04 16:31] VITALS: BP 126/83; PULSE 80
== END 2021-11-04 16:20 | disposition home or self-care (01) ==
LOC: EC 13:22
DX: F99 Mental disorder, not otherwise specified (principal); R41.0 Disorientation, unspecified
CPT/HCPCS: 36415; 70450; 80048; 85025; 85610; 85730; 93005; 99285

== ENCOUNTER 2024-02-25 01:02 | Inpatient (IN) | payer BC ==
--- NOTE | 2024-02-25 01:06 | ED ---
Seizure HPI - General Stated Complaint: Stroke Time Seen by Provider: 02/25/24 01:04 Source: RN notes reviewed, Caregiver Mode of arrival: EMS Limitations: altered mental status, physical limitation - History of Present Illness Initial Comments: This is a 64-year-old male to the ER for evaluation of what is expected to be seizure-like activity with persistent neurological symptoms. Patient does have atrial fibrillation and is on blood thinners, no history of seizure. Patient is significant confused here in the ER with slurred speech and facial weakness, droop, patient went to bed last night without complaint and has no headache MD Complaint: seizure, possible seizure, shaking, other (Patient did bite his tongue) -: minutes(s) Description of Episode: loss of consciousness, tonic-clonic movement, post-event confusion -: second(s) Witnessed: yes - by bystander, yes - by EMS Seizure History: none Place: home Possible Precipitating Event: none Associated Symptoms: confusion, malaise Treatments Prior to Arrival: none - Related Data Home Medications Medication Instructions Recorded Confirmed Warfarin [Coumadin] 2.5 mg PO TUTH@2100 12/13/19 02/25/24 Warfarin [Coumadin] 5 mg PO SUMOWEFRSA@2100 11/04/21 02/25/24 Previous Rx's Medication Instructions Recorded levETIRAcetam [Keppra] 500 mg PO Q12HR #60 tab 02/26/24 Allergies Allergy/AdvReac Type Severity Reaction Status Date / Time No Known Allergies Allergy Verified 02/25/24 07:00 Review of Systems ROS Statement: Those systems with pertinent positive or pertinent negative responses have been documented in the HPI. ROS Other: All systems not noted in ROS Statement are negative. Past Medical History Past Medical History: Atrial Flutter Additional Past Medical History / Comment(s): States irregular H/R. History of Any Multi-Drug Resistant Organisms: None Reported Past Surgical History: Ablation Additional Past Surgical History / Comment(s): Mitral valve repair. Past Anesthesia/Blood Transfusion Reactions: No Reported Reaction Past Psychological History: No Psychological Hx Reported Smoking Status: Never smoker Past Alcohol Use History: Occasional Past Drug Use History: None Reported - Past Family History Mother Family Medical History: No Reported History General Exam General appearance: alert, in no apparent distress, anxious, in distress Head exam: Present: atraumatic, normocephalic, normal inspection Eye exam: Present: normal appearance, PERRL, EOMI. Absent: scleral icterus, conjunctival injection, periorbital swelling ENT exam: Present: normal exam, mucous membranes moist Neck exam: Present: normal inspection. Absent: tenderness, meningismus, lymphadenopathy Respiratory exam: Present: normal lung sounds bilaterally. Absent: respiratory distress, wheezes, rales, rhonchi, stridor Cardiovascular Exam: Present: tachycardia, irregular rhythm, normal heart sounds. Absent: systolic murmur, diastolic murmur, rubs, gallop, clicks GI/Abdominal exam: Present: soft, normal bowel sounds. Absent: distended, tenderness, guarding, rebound, rigid Extremities exam: Present: normal inspection, full ROM, normal capillary refill. Absent: tenderness, pedal edema, joint swelling, calf tenderness Back exam: Present: normal inspection Neurological exam: Present: alert, oriented X3, CN II-XII intact Psychiatric exam: Present: normal affect, normal mood Skin exam: Present: warm, dry, intact, normal color. Absent: rash Course Vital Signs 02/25/24 02/25/24 02/25/24 01:03 01:15 01:30 Temperature 98 F Pulse Rate 120 H 117 H 124 H Respiratory 20 20 20 Rate Blood Pressure 141/90 139/89 124/86 O2 Sat by Pulse 94 L 94 L 95 Oximetry 02/25/24 02/25/24 02/25/24 01:45 01:50 02:00 Temperature Pulse Rate 112 H 115 H 116 H Respiratory 20 20 20 Rate Blood Pressure 125/81 125/81 122/86 O2 Sat by Pulse 93 L 98 99 Oximetry 02/25/24 02/25/24 02/25/24 02:15 02:30 02:45 Temperature Pulse Rate 113 H 115 H 115 H Respiratory 20 20 20 Rate Blood Pressure 122/85 127/88 125/83 O2 Sat by Pulse 99 98 99 Oximetry 02/25/24 02/25/24 02/25/24 03:15 03:45 05:00 Temperature Pulse Rate 116 H 106 H 114 H Respiratory 18 20 20 Rate Blood Pressure 124/83 117/87 117/73 O2 Sat by Pulse 99 98 96 Oximetry 02/25/24 02/25/24 02/25/24 06:00 07:00 09:31 Temperature Pulse Rate 98 60 97 Respiratory 18 18 18 Rate Blood Pressure 100/71 115/78 125/76 O2 Sat by Pulse 98 99 96 Oximetry 02/25/24 02/25/24 02/25/24 12:11 16:10 18:40 Temperature 98.2 F Pulse Rate 61 57 L 83 Respiratory 18 16 18 Rate Blood Pressure 107/58 109/70 119/82 O2 Sat by Pulse 94 L 97 97 Oximetry 02/25/24 02/25/24 02/25/24 19:00 22:00 23:00 Temperature Pulse Rate 66 73 101 H Respiratory 18 18 18 Rate Blood Pressure 93/74 99/68 101/68 O2 Sat by Pulse Oximetry 02/26/24 02/26/24 02/26/24 01:00 03:12 06:00 Temperature Pulse Rate 53 L 57 L 58 L Respiratory 18 18 18 Rate Blood Pressure 91/60 O2 Sat by Pulse 96 Oximetry 02/26/24 02/26/24 09:16 11:49 Temperature 98.4 F Pulse Rate 85 Respiratory 18 Rate Blood Pressure 103/83 O2 Sat by Pulse 99 100 Oximetry - Reevaluation(s) Reevaluation #1: 02/25/24 01:58 Medical records reviewed Code stroke paged here in the ER Reevaluation #2: 02/25/24 01:59 Patient informed of results and questions answered Reevaluation #3: 02/25/24 01:59 Patient has improving symptoms and continued improving symptoms here in the ER Reevaluation #4: Was pt. sent in by a medical professional or institution (, PA, CAR AUDIO INSTALLER, urgent care, hospital, or penitentiary...) When possible be specific @ -no Did you speak to anyone other than the patient for history (EMS, parent, family, police, friend...)? What history was obtained from this source @ -no Did you review nursing and triage notes (agree or disagree)? Why? @ -agree Are old charts reviewed (outside hosp., previous admission, EMS record, old EKG, old radiological studies, urgent care reports/EKG's, penitentiary records)? Report findings @ -yes Differential Diagnosis (chest pain, altered mental status, abdominal pain women, abdominal pain men, vaginal bleeding, weakness, fever, dyspnea, syncope, headache, dizziness, GI bleed, back pain, seizure, CVA, palpatations, mental health, musculoskeletal)? @ -prior EKG interpreted by me (3pts min.). @ -yes X-rays interpreted by me (1pt min.). @ -yes negative for acute disease CT interpreted by me (1pt min.). @ -Yes negative for acute disease U/S interpreted by me (1pt. min.). @ -no What testing was considered but not performed or refused? (CT, X-rays, U/S, labs)? Why? @ -none What meds were considered but not given or refused? Why? @ -none Did you discuss the management of the patient with other professionals (professionals i.e. , PA, CAR AUDIO INSTALLER, lab, RT, psych nurse, social security assessor, strength and conditioning coach, teacher, chairman and chief executive officer, shelter case manager)? Give summary @ -no Was smoking cessation discussed for >3mins.? @ -no Was critical care preformed (if so, how long)? @ -yes31 Were there social determinants of health that impacted care today? How? (Homelessness, low income, unemployed, alcoholism, drug addiction, transportation, low edu. Level, literacy, decrease access to med. care, shelter, re hab)? @ -none Was there de-escalation of care discussed even if they declined (Discuss DNR or withdrawal of care, Hospice)? DNR status @ -no What co-morbidities impacted this encounter? (DM, HTN, Smoking, COPD, CAD, Cancer, CVA, ARF, Chemo, Hep., AIDS, mental health diagnosis, sleep apnea, morbid obesity)? @ -none Was patient admitted / discharged? Hospital course, mention meds given and route, prescriptions, significant lab abnormalities, going to OR and other pertinent info. @ - 64 male found to have new onset seizure with paralysis concern for may be Caleb's paralysis versus TIA. No neurological symptoms currently. Patient will be admitted for further evaluation and management Admitted Undiagnosed new problem with uncertain prognosis? @ -no Drug Therapy requiring intensive monitoring for toxicity (Heparin, Nitro, Insulin, Cardizem)? @ -no Were any procedures done? @ -no Diagnosis/symptom? @ -New onset seizure versus TIA Acute, or Chronic, or Acute on Chronic? @ -Acute Uncomplicated (without systemic symptoms) or Complicated (systemic symptoms)? @ -Complicated Side effects of treatment? @ -no Exacerbation, Progression, or Severe Exacerbation? @ -exacerbation Poses a threat to life or bodily function? How? (Chest pain, USA, ND, pneumonia, PE, COPD, DKA, ARF, appy, cholecystitis, CVA, Diverticulitis, Homicidal, Suicidal, threat to staff... and all critical care pts) @ -yes with significant new onset seizure Reevaluation #5: Differential Seizure: Recurrent seizure disorder, febrile seizure, alcohol withdrawal, stimulants, meningitis, encephalitis, intercranial hemorrhage, intracranial tumor, stroke, eclampsia, thyrotoxicosis, hypocalcemia, hyponatremia, hypernatremia, hypomagnesemia, psychogenic, this is not meant to be an all-inclusive list. - Consultations Consultation #1: Spoke with admitting physicians who agreed to admit this patient Medical Decision Making - Medical Decision Making 64 male found to have new onset seizure with paralysis concern for may be Caleb's paralysis versus TIA. No neurological symptoms currently. Patient will be admitted for further evaluation and management - Lab Data Result diagrams: 02/26/24 09:57 02/26/24 09:57 Lab Results 02/25/24 02/25/24 02/25/24 Range/Units 01:12 01:12 01:12 WBC 8.8 (3.8-10.6) k/uL RBC 5.00 (4.30-5.90) m/uL Hgb 14.8 (13.0-17.5) gm/dL Hct 45.9 (39.0-53.0) % MCV 91.8 (80.0-100.0) fL MCH 29.7 (25.0-35.0) pg MCHC 32.3 (31.0-37.0) g/dL RDW 13.2 (11.5-15.5) % Plt Count 320 (150-450) k/uL MPV 7.3 Neutrophils % 58 % Lymphocytes % 32 % Monocytes % 5 % Eosinophils % 2 % Basophils % 1 % Neutrophils # 5.1 (1.3-7.7) k/uL Lymphocytes # 2.8 (1.0-4.8) k/uL Monocytes # 0.5 (0-1.0) k/uL Eosinophils # 0.2 (0-0.7) k/uL Basophils # 0.1 (0-0.2) k/uL PT 26.1 H (10.0-12.5) sec INR 2.6 H (<1.2) APTT 33.7 H (22.0-30.0) sec Sodium 138 (137-145) mmol/L Potassium 3.7 (3.5-5.1) mmol/L Chloride 105 (98-107) mmol/L Carbon Dioxide 15 L (22-30) mmol/L Anion Gap 18 mmol/L BUN 19 (9-20) mg/dL Creatinine 1.09 (0.66-1.25) mg/dL Est GFR (CKD-EPI)AfAm 84 (>60 ml/min/1.73 sqM) Est GFR (CKD-EPI)NonAf 72 (>60 ml/min/1.73 sqM) Glucose 129 H (74-99) mg/dL Lactic Ac Sepsis Rflx Plasma Lactic Acid Jose (0.7-2.0) mmol/L Calcium 9.1 (8.4-10.2) mg/dL Phosphorus 3.5 (2.5-4.5) mg/dL Magnesium 2.0 (1.6-2.3) mg/dL Total Bilirubin 0.6 (0.2-1.3) mg/dL AST 39 (17-59) U/L ALT 37 (4-49) U/L Alkaline Phosphatase 77 (38-126) U/L Troponin I (0.000-0.034) ng/mL NT-Pro-B Natriuret Pep 339 pg/mL Total Protein 6.8 (6.3-8.2) g/dL Albumin 4.2 (3.5-5.0) g/dL Urine Color Urine Appearance (Clear) Urine pH (5.0-8.0) Ur Specific [place] (1.001-1.035) Urine Protein (Negative) Urine Glucose (UA) (Negative) Urine Ketones (Negative) Urine Blood (Negative) Urine Nitrite (Negative) Urine Bilirubin (Negative) Urine Urobilinogen (<2.0) mg/dL Ur Leukocyte Esterase (Negative) 02/25/24 02/25/24 02/25/24 Range/Units 01:12 01:12 01:42 WBC (3.8-10.6) k/uL RBC (4.30-5.90) m/uL Hgb (13.0-17.5) gm/dL Hct (39.0-53.0) % MCV (80.0-100.0) fL MCH (25.0-35.0) pg MCHC (31.0-37.0) g/dL RDW (11.5-15.5) % Plt Count (150-450) k/uL MPV Neutrophils % % Lymphocytes % % Monocytes % % Eosinophils % % Basophils % % Neutrophils # (1.3-7.7) k/uL Lymphocytes # (1.0-4.8) k/uL Monocytes # (0-1.0) k/uL Eosinophils # (0-0.7) k/uL Basophils # (0-0.2) k/uL PT (10.0-12.5) sec INR (<1.2) APTT (22.0-30.0) sec Sodium (137-145) mmol/L Potassium (3.5-5.1) mmol/L Chloride (98-107) mmol/L Carbon Dioxide (22-30) mmol/L Anion Gap mmol/L BUN (9-20) mg/dL Creatinine (0.66-1.25) mg/dL Est GFR (CKD-EPI)AfAm (>60 ml/min/1.73 sqM) Est GFR (CKD-EPI)NonAf (>60 ml/min/1.73 sqM) Glucose (74-99) mg/dL Lactic Ac Sepsis Rflx Plasma Lactic Acid Jose 10.6 H* (0.7-2.0) mmol/L Calcium (8.4-10.2) mg/dL Phosphorus (2.5-4.5) mg/dL Magnesium (1.6-2.3) mg/dL Total Bilirubin (0.2-1.3) mg/dL AST (17-59) U/L ALT (4-49) U/L Alkaline Phosphatase (38-126) U/L Troponin I <0.012 (0.000-0.034) ng/mL NT-Pro-B Natriuret Pep pg/mL Total Protein (6.3-8.2) g/dL Albumin (3.5-5.0) g/dL Urine Color Colorless Urine Appearance Clear (Clear) Urine pH 5.5 (5.0-8.0) Ur Specific [place] 1.023 (1.001-1.035) Urine Protein Trace H (Negative) Urine Glucose (UA) Negative (Negative) Urine Ketones Trace H (Negative) Urine Blood Negative (Negative) Urine Nitrite Negative (Negative) Urine Bilirubin Negative (Negative) Urine Urobilinogen <2.0 (<2.0) mg/dL Ur Leukocyte Esterase Negative (Negative) 02/25/24 Range/Units 02:27 WBC (3.8-10.6) k/uL RBC (4.30-5.90) m/uL Hgb (13.0-17.5) gm/dL Hct (39.0-53.0) % MCV (80.0-100.0) fL MCH (25.0-35.0) pg MCHC (31.0-37.0) g/dL RDW (11.5-15.5) % Plt Count (150-450) k/uL MPV Neutrophils % % Lymphocytes % % Monocytes % % Eosinophils % % Basophils % % Neutrophils # (1.3-7.7) k/uL Lymphocytes # (1.0-4.8) k/uL Monocytes # (0-1.0) k/uL Eosinophils # (0-0.7) k/uL Basophils # (0-0.2) k/uL PT (10.0-12.5) sec INR (<1.2) APTT (22.0-30.0) sec Sodium (137-145) mmol/L Potassium (3.5-5.1) mmol/L Chloride (98-107) mmol/L Carbon Dioxide (22-30) mmol/L Anion Gap mmol/L BUN (9-20) mg/dL Creatinine (0.66-1.25) mg/dL Est GFR (CKD-EPI)AfAm (>60 ml/min/1.73 sqM) Est GFR (CKD-EPI)NonAf (>60 ml/min/1.73 sqM) Glucose (74-99) mg/dL Lactic Ac Sepsis Rflx Y Plasma Lactic Acid Jose (0.7-2.0) mmol/L Calcium (8.4-10.2) mg/dL Phosphorus (2.5-4.5) mg/dL Magnesium (1.6-2.3) mg/dL Total Bilirubin (0.2-1.3) mg/dL AST (17-59) U/L ALT (4-49) U/L Alkaline Phosphatase (38-126) U/L Troponin I (0.000-0.034) ng/mL NT-Pro-B Natriuret Pep pg/mL Total Protein (6.3-8.2) g/dL Albumin (3.5-5.0) g/dL Urine Color Urine Appearance (Clear) Urine pH (5.0-8.0) Ur Specific [place] (1.001-1.035) Urine Protein (Negative) Urine Glucose (UA) (Negative) Urine Ketones (Negative) Urine Blood (Negative) Urine Nitrite (Negative) Urine Bilirubin (Negative) Urine Urobilinogen (<2.0) mg/dL Ur Leukocyte Esterase (Negative) - EKG Data -: EKG Interpreted by Me (EKG is A-flutter 118 QRS 90 QTc 388) - Radiology Data Radiology results: report reviewed (CT brain and CTA head neck negative for acute disease), image reviewed Critical Care Time Critical Care Time: Yes Total Critical Care Time: 31 Disposition Clinical Impression: Transient cerebral ischemia, New onset seizure, Caleb's paralysis, Post-ictal state Disposition: ADMITTED IP TO THIS HOSP Condition: Fair Is patient prescribed a controlled substance at d/c from ED?: No Time of Disposition: 03:00
[2024-02-25 01:26] LABS: Basophils # (A) 0.1 k/uL (0-0.2); Basophils % (A) 1 %; Eosinophils # (A) 0.2 k/uL (0-0.7); Eosinophils % (A) 2 %; HCT 45.9 % (39.0-53.0); HGB 14.8 gm/dL (13.0-17.5); Lymphocytes # (A) 2.8 k/uL (1.0-4.8); Lymphocytes % (A) 32 %; MCH 29.7 pg (25.0-35.0); MCHC 32.3 g/dL (31.0-37.0); MCV 91.8 fL (80.0-100.0); Mean Platelet Volume 7.3; Monocytes # (A) 0.5 k/uL (0-1.0); Monocytes % (A) 5 %; Neutrophils # (A) 5.1 k/uL (1.3-7.7); Neutrophils % (A) 58 %; Platelet Count 320 k/uL (150-450); RDW 13.2 % (11.5-15.5); WBC 8.8 k/uL (3.8-10.6)
[2024-02-25 01:36] LABS: INR 2.6 (<1.2); Partial Thromboplastin Time 33.7 sec (22.0-30.0); Prothrombin Time 26.1 sec (10.0-12.5)
[2024-02-25] MEDS: SODIUM CHLORIDE 0.9% 1,000 ML IV STA (01:43)
[2024-02-25 02:06] LABS: ALT 37 U/L (4-49); AST 39 U/L (17-59); African American GFR (CKD) 84 (>60 ml/min/1.73 sqM); Albumin 4.2 g/dL (3.5-5.0); Alkaline Phosphatase 77 U/L (38-126); Anion Gap 18 mmol/L; Blood Urea Nitrogen 19 mg/dL (9-20); Calcium 9.1 mg/dL (8.4-10.2); Carbon Dioxide 15 mmol/L (22-30); Chloride 105 mmol/L (98-107); Glucose 129 mg/dL (74-99); Non-African American GFR(CKD) 72 (>60 ml/min/1.73 sqM); Phosphorus 3.5 mg/dL (2.5-4.5); Potassium 3.7 mmol/L (3.5-5.1); Sodium 138 mmol/L (137-145); Total Bilirubin 0.6 mg/dL (0.2-1.3); Total Protein 6.8 g/dL (6.3-8.2)
[2024-02-25 02:12] LABS: NT-Pro-B-Type Natriuretic Pept 339 pg/mL
--- NOTE | 2024-02-25 02:12 | CT ---
EXAM: CT Head Without Intravenous Contrast CLINICAL HISTORY: Seizure TECHNIQUE: Axial computed tomography images of the head/brain without intravenous contrast. CTDI is 57.4 mGy and DLP is 1167.7 mGy-cm. This CT exam was performed using one or more of the following dose reduction techniques: automated exposure control, adjustment of the mA and/or kV according to patient size, and/or use of iterative reconstruction technique. COMPARISON: 11/04/2021. FINDINGS: Brain: No acute stroke. No hemorrhage. No abnormal extra-axial fluid collection. No significant white matter disease. Ventricles: No hydrocephalus. No midline shift. Bones/joints: Unremarkable. No acute fracture. Soft tissues: Unremarkable. Sinuses: Unremarkable as visualized. No acute sinusitis. IMPRESSION: No acute abnormality.
[2024-02-25 02:17] LABS: Appearance,Urine Clear (Clear); Bilirubin,Urine Negative (Negative); Blood,Urine Negative (Negative); Color,Urine Colorless; Glucose,Urine (UA) Negative (Negative); Ketones,Urine Trace (Negative); Leukocyte Esterase,Urine Negative (Negative); Nitrite,Urine Negative (Negative); PH, Urine 5.5 (5.0-8.0); Protein,Urine Trace (Negative); Specific Gravity,Urine 1.023 (1.001-1.035); Urobilinogen,Urine <2.0 mg/dL (<2.0)
--- NOTE | 2024-02-25 02:22 | CT ---
EXAM: CT Angiography Head With Intravenous Contrast CLINICAL HISTORY: Sz TECHNIQUE: Axial computed tomographic angiography images of the head with intravenous contrast. CTDI is 159.6 mGy and DLP is 1472 mGy-cm. This CT exam was performed using one or more of the following dose reduction techniques: automated exposure control, adjustment of the mA and/or kV according to patient size, and/or use of iterative reconstruction technique. 3D and MIP reconstructed images were created and reviewed. COMPARISON: CT brain 02/25/2024. FINDINGS: Right internal carotid artery: No acute abnormality. Intracranial segment is patent with no significant stenosis. No aneurysm. Right anterior cerebral artery: Unremarkable. No occlusion or significant stenosis. No aneurysm. Right middle cerebral artery: Unremarkable. No occlusion or significant stenosis. No aneurysm. Right posterior cerebral artery: Unremarkable. No occlusion or significant stenosis. No aneurysm. Right vertebral artery: Unremarkable as visualized. Left internal carotid artery: No acute abnormality. Intracranial segment is patent with no significant stenosis. No aneurysm. Left anterior cerebral artery: Unremarkable. No occlusion or significant stenosis. No aneurysm. Left middle cerebral artery: Unremarkable. No occlusion or significant stenosis. No aneurysm. Left posterior cerebral artery: Unremarkable. No occlusion or significant stenosis. No aneurysm. Left vertebral artery: Unremarkable as visualized. Basilar artery: Unremarkable. No occlusion or significant stenosis. No aneurysm. IMPRESSION: No large vessel occlusion. No aneurysm or vascular malformation. EXAM: CT Angiography Neck With Intravenous Contrast CLINICAL HISTORY: Sz TECHNIQUE: Routine carotid CT angiography protocol was performed with intravenous contrast. NASCET criteria using the distal ICAs for comparison were used for evaluation of stenoses. CTDI is 159.6 mGy and DLP is 1472 mGy-cm. This CT exam was performed using one or more of the following dose reduction techniques: automated exposure control, adjustment of the mA and/or kV according to patient size, and/or use of iterative reconstruction technique. 3D and MIP reconstructed images were created and reviewed. COMPARISON: None. FINDINGS: VASCULATURE: Right common carotid artery: Unremarkable. No occlusion or significant stenosis. No dissection. Right internal carotid artery: Unremarkable. Extracranial segment is patent with no occlusion or significant stenosis. No dissection. Right external carotid artery: Unremarkable. No occlusion. Right vertebral artery: Unremarkable. No occlusion or significant stenosis. No dissection. Left common carotid artery: Unremarkable. No occlusion or significant stenosis. No dissection. Left internal carotid artery: Unremarkable. Extracranial segment is patent with no occlusion or significant stenosis. No dissection. Left external carotid artery: Unremarkable. No occlusion. Left vertebral artery: Unremarkable. No occlusion or significant stenosis. No dissection. NECK: Bones/joints: Degenerative changes of the spine. No acute fracture. Soft tissues: Unremarkable. Lung apices: Clear. CAROTID STENOSIS REFERENCE USING NASCET CRITERIA: % ICA stenosis = (1 - narrowest ICA diameter/diameter of distal cervical ICA) x 100. Mild - <50% stenosis. Moderate - 50-69% stenosis. Severe - 70-94% stenosis. Near occlusion - 95-99% stenosis. Occluded - 100% stenosis. IMPRESSION: No hemodynamically significant stenosis.
[2024-02-25] MEDS ORDERED: ONDANSETRON 4 MG/2 ML VIAL IVP PRN (03:04)
[2024-02-25] MEDS ORDERED: NALOXONE 0.4 MG/ML 1 ML VIAL IV PRN (03:04)
[2024-02-25] MEDS ORDERED: MORPHINE SULFATE 4 MG/ML SYRINGE IV PRN (03:04)
[2024-02-25] MEDS: SODIUM CHLORIDE 0.9% 1,000 ML IV SCH (04:02)
[2024-02-25] MEDS: levETIRAcetam IV 500 MG/5 ML VIAL IVP STA (04:03)
--- NOTE | 2024-02-25 13:58 | MR ---
EXAMINATION TYPE: MR brain wo/w con DATE OF EXAM: 02/25/2024 1:40 PM CLINICAL INDICATION:Male, 64 years old with history of TIAvSZ, TIA vx Seizure. COMPARISON: 02/25/2024 TECHNIQUE: Multi planar, multi sequence imaging was performed through the brain including: T1, T2, In version recovery, susceptibility weighted imaging and gradient echo imaging and Diffusion weighted im aging. The patient was then given intravenous contrast and multi planar, T1 fat-saturation images wer e obtained. IV Contrast: 7.5 cc Gadavist FINDINGS: The menendez-white junctions, ventricular system, basal cisterns appear unremarkable. Diffusion-weighted imaging shows no evidence of restricted diffusion to suggest acute/subacute infarct. Intracranial ar terial flow voids are maintained. Midline structures show no abnormality. Scattered foci of high T2 s ignal intensity are seen within the periventricular white matter. The susceptibility weighted images do not reveal any evidence for micro-hemorrhage. After administration of gadolinium, no abnormal enha ncement is seen. The bone marrow signal is within normal limits. Paranasal sinuses and mastoid air cells: Mucosal thickening throughout maxillary sinuses. Visualized orbits: Orbital contents are intact. IMPRESSION: 1. No evidence of intracranial mass, acute/subacute infarct, or abnormal enhancement. 2. Nonspecific white matter changes, likely related to small vessel ischemic disease.
--- NOTE | 2024-02-25 14:48 | P.CNNES ---
History of Present Illness Consult date: 02/25/24 Requesting physician: Clarence Licona Reason for Consult: new seizure, ?TIA History of Present Illness: This is a 64-year gentleman who presents to the emergency department because of seizure-like activity. He is accompanied with his who provides some of the history. It seems the patient went to bed yesterday night and was doing well. Today at 12:30am, woke-up as result of seizure-like activity. She noticed his arms where thrashing and he was not responding. His breathing was heavy. He bite the left side of tongue but no urinary or bowel incontinence. He denies any warning prior especially since he was sleeping. Per , entire episode lasted about 30 minutes. No sick contacts or fevers. Per the , he has episodes of feeling week and tired/off that would resolve after a bite of food that would happen in the past and happened multiple times. He has history of atrial fibrillation and is on Coumadin. Some of the work-up during this hospital visit consisted of: Is afebrile. cbc with diff is unremarkable. His initial lactic acid vein is 10.6 that normalized INR is 2.6 Sodium, calcium, phosphorous and magnesium are normal. CT head is no acute abnormality. I personally reviewed CT and agree with report. CTA head and neck: No hemodynamic significant stenosis, occlusion. EKG: Atrial flutter/tachy with RVR. Review of Systems The positive and negative as per HPI. Past Medical History Past Medical History: Atrial Flutter Additional Past Medical History / Comment(s): States irregular H/R. History of Any Multi-Drug Resistant Organisms: None Reported Past Surgical History: Ablation Additional Past Surgical History / Comment(s): Mitral valve repair. Past Anesthesia/Blood Transfusion Reactions: No Reported Reaction Past Psychological History: No Psychological Hx Reported Smoking Status: Never smoker Past Alcohol Use History: Occasional Past Drug Use History: None Reported - Past Family History Mother Family Medical History: No Reported History Medications and Allergies Home Medications Medication Instructions Recorded Confirmed Type Warfarin [Coumadin] 2.5 mg PO TUTH@2100 12/13/19 02/25/24 History Warfarin [Coumadin] 5 mg PO SUMOWEFRSA@2100 11/04/21 02/25/24 History Allergies Allergy/AdvReac Type Severity Reaction Status Date / Time No Known Allergies Allergy Verified 02/25/24 07:00 Physical Examination - Vital Signs Vital Signs: Vital Signs Temp Pulse Resp BP Pulse Ox 02/25/24 12:11 61 18 107/58 94 L 02/25/24 09:31 97 18 125/76 96 02/25/24 07:00 60 18 115/78 99 02/25/24 06:00 98 18 100/71 98 02/25/24 05:00 114 H 20 117/73 96 02/25/24 03:45 106 H 20 117/87 98 02/25/24 03:15 116 H 18 124/83 99 02/25/24 02:45 115 H 20 125/83 99 02/25/24 02:30 115 H 20 127/88 98 02/25/24 02:15 113 H 20 122/85 99 02/25/24 02:00 116 H 20 122/86 99 02/25/24 01:50 115 H 20 125/81 98 02/25/24 01:45 112 H 20 125/81 93 L 02/25/24 01:30 124 H 20 124/86 95 02/25/24 01:15 117 H 20 139/89 94 L 02/25/24 01:03 98 F 120 H 20 141/90 94 L Intake and Output 02/24/24 02/25/24 02/25/24 22:59 06:59 14:59 Other: Weight 77.111 kg General: Lying in bed and is not in acute distress. Neuro: The patient is awake, alert, oriented to self, place and time. Is following simple commands. No aphasia or neglect. Pupils are round, equal and reactive to light bilaterally. Visual vo are f ull to confrontation. EOM intact and no nystagmus. Normal facial sensation to touch. No facial weakness. No dysarthria. Hearing is normal to hand rub bilaterally. TOngue is midline and moves side to side without difficulty. Has tongue bite over the lateral anterior on left side. Motor: Strength is 5/5 throughout. Sensation is normal. Cerebellar: Upper and lower are normal. Reflex: 2+ Plantars are mute bilaterally. Results - Laboratory Findings CBC and BMP: 02/25/24 01:12 02/25/24 01:12 Abnormal Lab Findings: Abnormal Labs 02/25/24 02/25/24 02/25/24 01:12 01:12 01:12 PT 26.1 H INR 2.6 H APTT 33.7 H Carbon Dioxide 15 L Glucose 129 H Plasma Lactic Acid Jose 10.6 H* Troponin I Urine Protein Urine Ketones 02/25/24 02/25/24 02/25/24 01:42 04:47 08:40 PT INR APTT Carbon Dioxide Glucose Plasma Lactic Acid Jose Troponin I 0.044 H* 0.039 H* Urine Protein Trace H Urine Ketones Trace H Assessment and Plan Assessment: This is a 64-y/o gentleman who presents since just past midnight, woke-up noticing her having seizure-like activity with arm extension and thrashing of extremities, non responsive and breathing hard with tongue bite. Episode lasted 30 minutes. He had episodes of feeling tire/off that is very short lasting and resolved after "bite of sandwich". New onset seizures Prior multiple episodes of feeling off/tired and resolved with minimal food: Unsure if he had prior seizures that were not noticeable. Elevated lactic acid due to seizure--resolved History of atrial fibrillation on coumadin Family hx of seizure (mother had epileptic seizures). Plan: Routine EEG and MRI Brain are ordered and pending. seizure precaution and pads. He was given Keppra 1gm once in the ED and started on Keppra 1gm every 12 hours. Since he not on antiepileptic drugs prior to this, I will decrease to 500mg bid. Per [place] DMV because of seizure, avoid driving for 6 months until seizure free, avoid heights, swim unassisted or using heavy machinery. Recommend the patient to follow-up with neurologist as outpatient within 1-2 weeks. Cardiology team is consulted. The plan is discussed with patient and his . Thank you for the consultation. Time with Patient: Greater than 30
--- NOTE | 2024-02-25 15:19 | P.CRDCN ---
History of Present Illness Consult date: 02/25/24 Reason for Consult (text): Elevated troponins History of present illness: History of present illness: This is a 64-year-old male patient of Dr. ELSA Nguyen with past medical history of mitral valve repair in 2003 on Coumadin, atrial flutter status post ablation in 2012. We have been asked to evaluate the patient for elevated troponins. Patient was last seen in the office on 01/21. A 48-hour Holter monitor was reviewed and patient had tachybradycardia phenomena which may require pacemaker down the road and patient was started on metoprolol succinate but this was subsequently discontinued as patient was having symptoms of dizziness and lig htheadedness, no documented bradycardia. He had a repeat Holter 10 days which found the patient had A-fib with several episodes of RVR. Patient apparently was having heart rates up to 180 with activity. This was discussed with the patient on 02/17 and patient would have a follow-up appointment with Dr. Núñez. Patient underwent a dobutamine stress test last week which was negative. Also, during his last office visit, there was discussion regarding stopping Coumadin for 48 hours and starting the patient on Eliquis and the benefits of this change, but patient was not interested and declined recommendation. Patient's relates that she woke up aroung 12:30 in the morning and found the patient thrashing in bed. She called his name and he would not respond. He was also very sweaty and seemed to have labored breathing. She contacted her sister who is a nurse practitioner and the WATCHGUARD found the pupils were not responsive and patient had bitten his tongue and had blood in his mouth from the bite. The whole episode lasted about 1/2-hour. When EMS arrived they checked his blood sugar and shortly after that he started coming around. At the time of evaluation patient was back to his baseline. Regarding atrial flutter, patient was on metoprolol in the past, but due to low blood pressure, this was discontinued. No new medications. Patient denies having any chest pain. Patient is seen today in the emergency center waiting for a bed on the cardiac stepdown unit. Neurology is on consult. EKG atrial flutter 118 bpm CTA of the head revealed no large vessel occlusion, no aneurysm or vascular malformation. Carotid revealed no hemodynamically significant stenosis. CAT scan of the brain showed no acute process. CBC is normal. INR 2.6. Potassium 3.7, BUN 19 creatinine 1.09. Blood sugar 129. Lactic acid 10.6 and repeat 1. Magnesium 2, phosphorus 3.5. Troponin 0.012, 0.044, 0.039. proBNP 339. Urinalysis was negative for infection. Positive for ketones and protein. Home cardiac medications: Warfarin 2.5 mg on Sunday and and 5 mg on other days. Echocardiogram performed on 02/06/2024 revealed EF 50 to 55%. LV filling cannot be assessed due to atrial fibrillation. Borderline concentric left ventricular hypertrophy. Mitral valve prosthesis with abnormal findings mild valvular regurgitation. Mild tricuspid regurgitation. Mild to moderate pulmonic regurgitation. Cardiac catheterization history in 2003 patient was found to have a normal EF, no significant CAD. No gradient across the AV. Severe MR with prolapse of the anterior leaflet. Cardiovascular surgery in 1999 for mitral valve prolapse with severe regurgitation and repair done at [facility] Review Of Systems: At the time of my exam: CONSTITUTIONAL: Denies fever or chills. HEENT: Denies blurred vision, vision changes, or eye pain. Denies hemoptysis CARDIOVASCULAR: Denies chest pain. Denies orthopnea. Denies PND. Denies palpitations RESPIRATORY: Denies shortness of breath. GASTROINTESTINAL: Denies abdominal pain. Denies nausea or vomiting. HEMATOLOGIC: Denies bleeding disorders. GENITOURINARY: Denies any blood in urine. SKIN: Denies pruitis. Denies rash. Physical examination: Gen: This is a 64-year-old male in no acute distress] VS: reviewed, blood pressure 125/76, heart rate 97, pulse ox 96% on room air. HEENT: Head is atraumatic, normocephalic. Pupils equal, round. Sclerae is anicteric. NECK: Supple. No JVD. LUNGS: Clear to auscultation. No wheezes or rhonchi. No intercostal retractions. HEART: Regular rate and rhythm. No murmur. ABDOMEN: Soft No tenderness. EXTREMITIES: No pedal edema. No calf tenderness. NEUROLOGICAL: Patient is awake, alert and oriented x3. Assessment: Loss of consciousness most likely seizure activity Lactic acidosis Atrial flutter, typical/atrial fibrillation Mitral valve repair Plan: Resume patient's home cardiac medications Continue telemetry monitoring Neurology workup Obtain 2-D echocardiogram and Doppler study to assess cardiac structure and function Further recommendations to follow based upon clinical course Thank you kindly for this consultation. Nurse practitioner note has been reviewed, I agree with documented findings and plan of care. Patient was seen and examined. Past Medical History Past Medical History: Atrial Flutter Additional Past Medical History / Comment(s): States irregular H/R. History of Any Multi-Drug Resistant Organisms: None Reported Past Surgical History: Ablation Additional Past Surgical History / Comment(s): Mitral valve repair. Past Anesthesia/Blood Transfusion Reactions: No Reported Reaction Past Psychological History: No Psychological Hx Reported Smoking Status: Never smoker Past Alcohol Use History: Occasional Past Drug Use History: None Reported - Past Family History Mother Family Medical History: No Reported History Medications and Allergies Home Medications Medication Instructions Recorded Confirmed Type Warfarin [Coumadin] 2.5 mg PO TUTH@209912/13/19 02/25/24 History Warfarin [Coumadin] 5 mg PO SUMOWEFRSA@209911/04/21 02/25/24 History Allergies Allergy/AdvReac Type Severity Reaction Status Date / Time No Known Allergies Allergy Verified 02/25/24 07:00 Physical Exam Vitals: Vital Signs Temp Pulse Resp BP Pulse Ox 02/25/24 09:31 97 18 125/76 96 02/25/24 07:00 60 18 115/78 99 02/25/24 06:00 98 18 100/71 98 02/25/24 05:00 114 H 20 117/73 96 02/25/24 03:45 106 H 20 117/87 98 02/25/24 03:15 116 H 18 124/83 99 02/25/24 02:45 115 H 20 125/83 99 02/25/24 02:30 115 H 20 127/88 98 02/25/24 02:15 113 H 20 122/85 99 02/25/24 02:00 116 H 20 122/86 99 02/25/24 01:50 115 H 20 125/81 98 02/25/24 01:45 112 H 20 125/81 93 L 02/25/24 01:30 124 H 20 124/86 95 02/25/24 01:15 117 H 20 139/89 94 L 02/25/24 01:03 98 F 120 H 20 141/90 94 L Intake and Output 02/24/24 02/25/24 02/25/24 22:59 06:59 14:59 Other: Weight 77.111 kg Results 02/25/24 01:12 02/25/24 01:12 Cardiac Enzymes 02/25/24 02/25/24 02/25/24 Range/Units 01:12 01:12 04:47 AST 39 (17-59) U/L Troponin I <0.012 0.044 H* (0.000-0.034) ng/mL 02/25/24 Range/Units 08:40 AST (17-59) U/L Troponin I 0.039 H* (0.000-0.034) ng/mL Coagulation 02/25/24 Range/Units 01:12 PT 26.1 H (10.0-12.5) sec APTT 33.7 H (22.0-30.0) sec CBC 02/25/24 Range/Units 01:12 WBC 8.8 (3.8-10.6) k/uL RBC 5.00 (4.30-5.90) m/uL Hgb 14.8 (13.0-17.5) gm/dL Hct 45.9 (39.0-53.0) % Plt Count 320 (150-450) k/uL Comprehensive Metabolic Panel 02/25/24 Range/Units 01:12 Sodium 138 (137-145) mmol/L Potassium 3.7 (3.5-5.1) mmol/L Chloride 105 (98-107) mmol/L Carbon Dioxide 15 L (22-30) mmol/L BUN 19 (9-20) mg/dL Creatinine 1.09 (0.66-1.25) mg/dL Glucose 129 H (74-99) mg/dL Calcium 9.1 (8.4-10.2) mg/dL AST 39 (17-59) U/L ALT 37 (4-49) U/L Alkaline Phosphatase 77 (38-126) U/L Total Protein 6.8 (6.3-8.2) g/dL Albumin 4.2 (3.5-5.0) g/dL Current Medications Generic Name Dose Route Start Last Admin Trade Name Freq PRN Reason Stop Dose Admin Sodium Chloride 1,000 mls @ 75 mls/hr 02/25/24 03:15 02/25/24 04:02 Saline 0.9% IV 75 mls/hr .[id number] BENJAMIN Administration Levetiracetam 1,000 mg 02/25/24 16:00 Levetiracetam Iv 500 Mg/5 Ml Vial IVP Q12H BENJAMIN Morphine Sulfate 4 mg 02/25/24 03:04 Morphine Sulfate 4 Mg/Ml Syringe IV Q4HR PRN Severe Pain (Scale 7 to 10) Naloxone HCl 0.2 mg 02/25/24 03:04 Naloxone 0.4 Mg/Ml 1 Ml Vial IV Q2M PRN Opioid Reversal Ondansetron HCl 4 mg 02/25/24 03:04 Ondansetron 4 Mg/2 Ml Vial IVP Q8HR PRN Nausea And Vomiting Intake and Output 02/24/24 02/25/24 02/25/24 22:59 06:59 14:59 Other: Weight 77.111 kg 02/25/24 01:12 02/25/24 01:12
[2024-02-25] MEDS ORDERED: levETIRAcetam IV 500 MG/5 ML VIAL IVP SCH (16:00)
[2024-02-25 18:53] VITALS: RESP 18
[2024-02-25] MEDS: levETIRAcetam 500 MG TAB PO SCH (22:09)
--- NOTE | 2024-02-25 22:32 | P.HPIM ---
History of Present Illness H&P Date: 02/25/24 Chief Complaint: Unresponsive episode Patient is a 64-year-old male with a past medical history of atrial flutter on anticoagulation with Coumadin presents to ER due to unresponsiveness. Patient is somewhat poor historian. She woke up around 12 AM and started shaking his h and and his tried to wake him up and has not been responding. Patient started breathing heavily and labored. EMS was called and patient felt tired over the after that and felt better after about half an hour when he ate a bite of sandwich. Patient states that he did bit his tongue and EMS noted that his right-sided face was droopy. Otherwise patient denies any slurred speech when he wakes up and denies any double vision. No blurry vision. No headache or dizziness. Patient was recently treated for right maxillary sinus infection with doxycycline. He did see his dentist, was told he did not have any tooth infection. On admission EKG showed atrial flutter/tachycardia with rapid ventricular response. CT head showed no acute abnormality. CT angiogram of the head and neck showed no large vessel occlusion. No aneurysm or vascular malformation. No hemodynamically significant stenosis. Laboratory data showed WBC 8.8 hemoglobin 14.8 and platelets 320 INR 2.6, sodium 138 potassium 3.7 chloride 105 bicarb is 15 BUN 19 and creatinine 1.09 and blood sugar 129 and lactic acid on admission was 10.6 Level Elevated proBNP 339, troponin 0.012, 0.044 and 0.039, TSH 1.21 Urinalysis is negative for infection. Review of Systems Constitutional: Patient denies any fever or chills . No generalized weakness or weight loss. Abdomen: Patient denied nausea vomiting and diarrhea and abdominal pain. Cardiovascular: Patient denies any chest pain or short of breath no palpitations. Respiratory: patient denied any cough is from production. No shortness of breath Neurologic: Patient denied any numbness or tingling headache. Musculoskeletal: Patient denies any complaints of joint swelling or deformity. Skin: Negative Psychiatric: Negative Endocrine: No heat or cold intolerance. No recent weight gain. Genitourinary: No dysuria or hematuria. All other 14 point ROS negative except the above Past Medical History Past Medical History: Atrial Flutter Additional Past Medical History / Comment(s): States irregular H/R. History of Any Multi-Drug Resistant Organisms: None Reported Past Surgical History: Ablation Additional Past Surgical History / Comment(s): Mitral valve repair. Past Anesthesia/Blood Transfusion Reactions: No Reported Reaction Past Psychological History: No Psychological Hx Reported Smoking Status: Never smoker Past Alcohol Use History: Occasional Past Drug Use History: None Reported - Past Family History Mother Family Medical History: No Reported History Medications and Allergies Home Medications Medication Instructions Recorded Confirmed Type Warfarin [Coumadin] 2.5 mg PO TUTH@209912/13/19 02/25/24 History Warfarin [Coumadin] 5 mg PO SUMOWEFRSA@209911/04/21 02/25/24 History Allergies Allergy/AdvReac Type Severity Reaction Status Date / Time No Known Allergies Allergy Verified 02/25/24 07:00 Physical Exam Vitals: Vital Signs Temp Pulse Resp BP Pulse Ox 02/25/24 09:31 97 18 125/76 96 02/25/24 07:00 60 18 115/78 99 02/25/24 06:00 98 18 100/71 98 02/25/24 05:00 114 H 20 117/73 96 02/25/24 03:45 106 H 20 117/87 98 02/25/24 03:15 116 H 18 124/83 99 02/25/24 02:45 115 H 20 125/83 99 02/25/24 02:30 115 H 20 127/88 98 02/25/24 02:15 113 H 20 122/85 99 02/25/24 02:00 116 H 20 122/86 99 02/25/24 01:50 115 H 20 125/81 98 02/25/24 01:45 112 H 20 125/81 93 L 02/25/24 01:30 124 H 20 124/86 95 02/25/24 01:15 117 H 20 139/89 94 L 02/25/24 01:03 98 F 120 H 20 141/90 94 L Intake and Output 02/24/24 02/25/24 02/25/24 22:59 06:59 14:59 Other: Weight 77.111 kg PHYSICAL EXAMINATION: Patient is lying in the bed comfortably, no acute distress, awake alert and oriented.. HEENT: Normocephalic. Neck is supple. Pupils reactive. Nostrils clear. Oral cavity is moist. Neck reveals no JVD, carotid bruits, or thyromegaly. CHEST EXAMINATION: Trachea is central. Symmetrical expansion. Lung vo clear to auscultation and percussion. CARDIAC: Normal S1, S2 with no gallops. Systolic murmur ABDOMEN: Soft. Bowel sounds normal. No organomegaly. No abdominal bruits. Extremities: reveal no edema. No clubbing or cyanosis Neurologically awake, alert, oriented x3 with well-coordinated movements. No focal deficits noted Skin: No rash or skin lesions. Psychiatric: Coperative. Nonsuicidal Musculoskeletal: No joint swelling or deformity. Normal range of motion. Results CBC & Chem 7: 02/25/24 01:12 02/25/24 01:12 Labs: Abnormal Lab Results - Last 24 Hours (Table) 02/25/24 02/25/24 02/25/24 Range/Units 01:12 01:12 01:12 PT 26.1 H (10.0-12.5) sec INR 2.6 H (<1.2) APTT 33.7 H (22.0-30.0) sec Carbon Dioxide 15 L (22-30) mmol/L Glucose 129 H (74-99) mg/dL Plasma Lactic Acid Jose 10.6 H* (0.7-2.0) mmol/L Troponin I (0.000-0.034) ng/mL Urine Protein (Negative) Urine Ketones (Negative) 02/25/24 02/25/24 02/25/24 Range/Units 01:42 04:47 08:40 PT (10.0-12.5) sec INR (<1.2) APTT (22.0-30.0) sec Carbon Dioxide (22-30) mmol/L Glucose (74-99) mg/dL Plasma Lactic Acid Jose (0.7-2.0) mmol/L Troponin I 0.044 H* 0.039 H* (0.000-0.034) ng/mL Urine Protein Trace H (Negative) Urine Ketones Trace H (Negative) Thrombosis Risk Factor Assmnt - DVT/VTE Prophylaxis DVT/VTE Prophylaxis: Pharmacologic Prophylaxis ordered Assessment and Plan Assessment: New onset seizures Lactic acidosis likely due to seizures Mild troponin elevation likely demand ischemia History of atrial flutter with rapid ventricular b response. On anticoagulation with warfarin. Prior history of ablation. History of mitral valve repair Coumadin dosing Plan: Patient will be continued on telemetry monitoring. Continue with seizure precautions and fall precautions. Patient was given IV Keppra in the ER and will be continued on Keppra 5 mg every 12 as per neurology recommendations. Lactic acidosis resolved now. MRI of the brain and EEG was ordered. Continue with Coumadin dosing. Cardiology and neurology is on board. Follow-up closely. Time with Patient: Greater than 30
[2024-02-25] MEDS ORDERED: WARFARIN 2.5 MG TAB PO ONE (23:00)
[2024-02-25] MEDS: WARFARIN 5 MG TAB PO ONE (23:13)
--- NOTE | 2024-02-26 06:03 | EEG ---
ELECTROENCEPHALOGRAM REPORT CLINICAL HISTORY: This is a 64-year-old gentleman who presented to the emergency department because of new onset seizure-like activity at home. The video EEG is obtained to evaluate for seizure epileptiform activity. RELEVANT MEDICATION: Keppra. EEG TYPE: This is a routine 21-channel EEG with video using the 10/20 electrode placement system. DESCRIPTION: Wakefulness is only obtained. During awake state, the posterior-dominant rhythm consists of [id number] voltage of 10-11 Hertz activity that is well modulated, well sustained. There is no physiological stage 2 sleep architecture. There is no focal slowing. Interictal and ictal is none. ACTIVATION PROCEDURE: Photic stimulation did not evoke a posterior driving response. There is no abnormality during the photic stimulation. Hyperventilation is not performed. CLINICAL INTERPRETATION: This is a normal routine EEG. There is no focal slowing, epileptiform discharge, or seizure on the EEG. A normal routine EEG does not rule out underlying epilepsy. Clinical correlation is recommended. MMJOE / DARCIEN: [id number] /
[2024-02-26 10:33] LABS: Basophils # (A) 0.1 k/uL (0-0.2); Basophils % (A) 1 %; Eosinophils # (A) 0.2 k/uL (0-0.7); Eosinophils % (A) 2 %; HCT 43.4 % (39.0-53.0); HGB 14.1 gm/dL (13.0-17.5); Lymphocytes # (A) 1.2 k/uL (1.0-4.8); Lymphocytes % (A) 18 %; MCH 30.2 pg (25.0-35.0); MCHC 32.5 g/dL (31.0-37.0); MCV 92.8 fL (80.0-100.0); Mean Platelet Volume 7.2; Monocytes # (A) 0.3 k/uL (0-1.0); Monocytes % (A) 5 %; Neutrophils # (A) 4.9 k/uL (1.3-7.7); Neutrophils % (A) 72 %; Platelet Count 268 k/uL (150-450); RBC 4.68 m/uL (4.30-5.90); RDW 13.6 % (11.5-15.5); WBC 6.8 k/uL (3.8-10.6)
[2024-02-26 10:49] LABS: INR 3.2 (<1.2); Prothrombin Time 31.2 sec (10.0-12.5)
[2024-02-26 10:52] LABS: ALT 37 U/L (4-49); AST 40 U/L (17-59); African American GFR (CKD) >90 (>60 ml/min/1.73 sqM); Albumin 3.6 g/dL (3.5-5.0); Alkaline Phosphatase 73 U/L (38-126); Anion Gap 4 mmol/L; Blood Urea Nitrogen 13 mg/dL (9-20); Calcium 8.8 mg/dL (8.4-10.2); Carbon Dioxide 30 mmol/L (22-30); Chloride 108 mmol/L (98-107); Glucose 80 mg/dL (74-99); Magnesium 1.9 mg/dL (1.6-2.3); Non-African American GFR(CKD) >90 (>60 ml/min/1.73 sqM); Potassium 3.9 mmol/L (3.5-5.1); Sodium 142 mmol/L (137-145); Total Bilirubin 0.9 mg/dL (0.2-1.3); Total Protein 6.1 g/dL (6.3-8.2)
--- NOTE | 2024-02-26 11:58 | P.PN ---
Subjective Progress Note Date: 02/26/24 Reason for Consult (text): Elevated troponins History of present illness: This is a 64-year-old male patient of Dr. ELSA Nguyen with past medical history of mitral valve repair in 2003 on Coumadin, atrial flutter status post ablation in 2012. We have been asked to evaluate the patient for elevated troponins. Patient was last seen in the office on 01/21. A 48-hour Holter monitor was reviewed and patient had tachybradycardia phenomena which may require pacemaker down the road and patient was started on metoprolol succinate but this was subsequently discontinued as patient was having symptoms of dizziness and lightheadedness, no documented bradycardia. He had a repeat Holter 10 days which found the patient had A-fib with several episodes of RVR. Patient apparently was having heart rates up to 180 with activity. This was discussed with the patient on 02/17 and patient would have a follow-up appointment with Dr. Núñez. Patient underwent a dobutamine stress test last week which was negative. Also, during his last office visit, there was discussion regarding stopping Coumadin for 48 hours and starting the patient on Eliquis and the benefits of this change, but patient was not interested and declined recommendation. Patient's relates that she woke up aroung 12:30 in the morning and found the patient thrashing in bed. She called his name and he would not respond. He was also very sweaty and seemed to have labored breathing. She contacted her sister who is a nurse practitioner and the [employer] found the pupils were not responsive and patient had bitten his tongue and had blood in his mouth from the bite. The whole episode lasted about 1/2-hour. When EMS arrived they checked his blood sugar and shortly after that he started coming around. At the time of evaluation patient was back to his baseline. Regarding atrial flutter, patient was on metoprolol in the past, but due to low blood pressure, this was discontinued. No new medications. Patient denies having any chest pain. Patient is seen today in the emergency center waiting for a bed on the cardiac stepdown unit. Neurology is on consult. EKG atrial flutter 118 bpm CTA of the head revealed no large vessel occlusion, no aneurysm or vascular malformation. Carotid revealed no hemodynamically significant stenosis. CAT scan of the brain showed no acute process. CBC is normal. INR 2.6. Potassium 3.7, BUN 19 creatinine 1.09. Blood sugar 129. Lactic acid 10.6 and repeat 1. Magnesium 2, phosphorus 3.5. Troponin 0.012, 0.044, 0.039. proBNP 339. Urinalysis was negative for infection. Positive for ketones and protein. Home cardiac medications: Warfarin 2.5 mg on Sunday and and 5 mg on other days. Echocardiogram performed on 02/06/2024 revealed EF 50 to 55%. LV filling cannot be assessed due to atrial fibrillation. Borderline concentric left ventricular hypertrophy. Mitral valve prosthesis with abnormal findings mild valvular regurgitation. Mild tricuspid regurgitation. Mild to moderate pulmonic regurgitation. Cardiac catheterization history in 2003 patient was found to have a normal EF, no significant CAD. No gradient across the AV. Severe MR with prolapse of the anterior leaflet. Cardiovascular surgery in 2003 mitral valve prolapse with severe regurgitation and repair done at [facility] 02/25 Patient is seen today in the ER. EEG did not capture seizure activity. MRi was negative for acute findings. Patient has had no further episodes of brought him into the hospital. Blood pressure 103/83, heart rate 85, pulse ox 99% on room air. Patient denies having any chest pain or chest pressure. No l ightheadedness or dizziness. Patient has been started on Keppra by neurology. Physical examination: Gen: This is a 64-year-old male in no acute distress] VS: reviewed HEENT: Head is atraumatic, normocephalic. Pupils equal, round. Sclerae is anicteric. NECK: Supple. No JVD. LUNGS: Clear to auscultation. No wheezes or rhonchi. No intercostal retractions. HEART: Regular rate and rhythm. No murmur. ABDOMEN: Soft No tenderness. EXTREMITIES: No pedal edema. No calf tenderness. NEUROLOGICAL: Patient is awake, alert and oriented x3. Assessment: Loss of consciousness most likely seizure activity Lactic acidosis Elevated troponins most likely secondary to seizure activity, acute coronary syn drome ruled out Atrial flutter, typical/atrial fibrillation Mitral valve repair Plan: Continue patient's home cardiac medications Continue telemetry monitoring Neurology workup Obtain 2-D echocardiogram and Doppler study to assess cardiac structure and function. Patient does not have to wait for results of echocardiogram. Patient is cleared for discharge from cardiology and may follow-up with Dr. ELSA Nguyen and 2 weeks. Nurse practitioner note has been reviewed, I agree with documented findings and plan of care. Patient was seen and examined. Objective - Vital Signs Vital signs: Vital Signs Temp 98.4 F 02/26/24 09:16 Pulse 85 02/26/24 09:16 Resp 18 02/26/24 09:16 BP 103/83 02/26/24 09:16 Pulse Ox 99 02/26/24 09:16 FiO2 - Labs CBC & Chem 7: 02/26/24 09:57 02/26/24 09:57
[2024-02-26 14:27] VITALS: BP 132/91; PULSE 74; TEMP 98.5
--- NOTE | 2024-02-26 15:38 | P.PN ---
Subjective Progress Note Date: 02/26/24 I am following-up with patient and no further episode of seizure-like activities. He feels back to baseline. He stated he episodes of feeling minimally confused/off while at work resolved with a bite of sandwich and usually happens at 5:30am. Objective - Vital Signs Vital signs: Vital Signs Temp 98.5 F 02/26/24 12:45 Pulse 74 02/26/24 12:45 Resp 18 02/26/24 12:45 BP 132/91 02/26/24 12:45 Pulse Ox 98 02/26/24 12:45 FiO2 - Exam General: Sitting in a recliner chair and is not in acute distress. Neuro: The patient is awake, alert, oriented to self, place and time. Is following simple commands. No aphasia or neglect. Pupils are round, equal and reactive to light bilaterally. Visual vo are full to confrontation. EOM intact and no nystagmus. Normal facial sensation to touch. No facial weakness. No dysarthria. Hearing is normal to hand rub bilaterally. Tongue is midline and moves side to side without difficulty. Has tongue bite over the lateral anterior on left side. Motor: Strength is 5/5 throughout. Sensation is normal. Cerebellar: Upper and lower are normal. Reflex: 2+ Plantars are mute bilaterally. Some of the work-up during this hospital visit consisted of: Is afebrile. cbc with diff is unremarkable. His initial lactic acid vein is 10.6 that normalized INR is 2.6 Sodium, calcium, phosphorous and magnesium are normal. CT head is no acute abnormality. I personally reviewed CT and agree with report. CTA head and neck: No hemodynamic significant stenosis, occlusion. EKG: Atrial flutter/tachy with RVR. MRI Brain: It is reported as no evidence of intracranial mass, acute/subacute infarct or abnormal enhancement. Nonspecific white matter changes, likely related to small vessel ischemic disease. Routine EEG: Is normal. - Labs CBC & Chem 7: 02/26/24 09:57 02/26/24 09:57 Labs: Abnormal Lab Results - Last 24 Hours (Table) 02/26/24 02/26/24 Range/Units 09:57 09:57 PT 31.2 H (10.0-12.5) sec INR 3.2 H (<1.2) Chloride 108 H (98-107) mmol/L Total Protein 6.1 L (6.3-8.2) g/dL Assessment and Plan Assessment: This is a 64-y/o gentleman who presents since just past midnight, woke-up noticing her having seizure-like activity with arm extension and thrashing of extremities, non responsive and breathing hard with tongue bite. Episode lasted 30 minutes. He had episodes of feeling tire/off that is very short lasting and resolved after "bite of sandwich". New onset seizures Prior multiple episodes of feeling off/tired and resolved with minimal food: Unsure if he had prior seizures that were not noticeable. Rule out hypoglycemic events but also a concern is seizure Elevated lactic acid due to seizure--resolved History of atrial fibrillation on coumadin Family hx of seizure (mother had epileptic seizures). Plan: Routine EEG and MRI Brain are both normal. seizure precaution and pads. He was given Keppra 1gm once in the ED and started on Keppra 1gm every 12 hours. Since he not on antiepileptic drugs prior to this, I will decrease to 500mg bid. Per [place] DMV because of seizure, avoid driving for 6 months until seizure free, avoid heights, swim unassisted or using heavy machinery. This was instructed to patient and his . Recommend the patient to follow-up with neurologist as outpatient within 1-2 weeks. Cardiology team is consulted. The plan is discussed with patient and his . Also discussed with primary team. Time with Patient: Less than 30
[2024-02-26] MEDS ORDERED: WARFARIN 2.5 MG TAB PO SCH (18:00)
[2024-02-27] MEDS ORDERED: WARFARIN 5 MG TAB PO SCH (18:00)
--- NOTE | 2024-03-05 11:42 | P.DS ---
Providers Date of admission: 02/25/24 03:04 Expected date of discharge: 02/26/24 Attending physician: Phong Gauthier Consults: 02/25/24 03:04 Consult Physician Routine Consulting Provider: Raúl Cox Consult Reason/Comments: newSz,?TIA? Do you want consulting provider notified?: Yes 02/25/24 10:29 Consult Physician Routine Consulting Provider: Lázaro Lang Consult Reason/Comments: elevated tropinin Do you want consulting provider notified?: Already Contacted Primary care physician: Stated None Hospital Course: Discharge diagnosis New onset seizures Lactic acidosis likely due to seizures Mild troponin elevation likely demand ischemia History of atrial flutter with rapid ventricular b response. On anticoagulation with warfarin. Prior history of ablation. History of mitral valve repair Coumadin dosing Hospital course Patient is a 64-year-old male with a past medical history of atrial flutter on anticoagulation with Coumadin presents to ER due to unresponsiveness. Patient is somewhat poor historian. She woke up around 12 AM and started shaking his hand and his tried to wake him up and has not been responding. Patient started breathing heavily and labored. EMS was called and patient felt tired over the after that and felt better after about half an hour when he ate a bite of sandwich. Patient states that he did bit his tongue and EMS noted that his right-sided face was droopy. Otherwise patient denies any slurred speech when he wakes up and denies any double vision. No blurry vision. No headache or dizziness. Patient was recently treated for right maxillary sinus infection with doxycycline. He did see his dentist, was told he did not have any tooth infection. On admission EKG showed atrial flutter/tachycardia with rapid ventricular response. CT head showed no acute abnormality. CT angiogram of the head and neck showed no large vessel occlusion. No aneurysm or vascular malformation. No hemodynamically significant stenosis. Laboratory data showed WBC 8.8 hemoglobin 14.8 and platelets 320 INR 2.6, sodium 138 potassium 3.7 chloride 105 bicarb is 15 BUN 19 and creatinine 1.09 and blood sugar 129 and lactic acid on admission was 10.6 Level Elevated proBNP 339, troponin 0.012, 0.044 and 0.039, TSH 1.21 Urinalysis is negative for infection. Patient was continued on telemetry monitoring. Continue with seizure precautions and fall precautions. Patient was given IV Keppra in the ER and will be continued on Keppra 5 mg every 12 as per neurology recommendations. Lactic acidosis resolved now. MRI of the brain and EEG was ordered. Continue with Coumadin dosing. Cardiology and neurology has seen the patient. Routine EEG and MRI Brain are both normal. No further episodes of seizures while in the hospital. Neurology recommends to continue Keppra as an outpatient follow-up with neurology in the clinic. Otherwise patient is able to ambulate in the room. Being discharged home and follow-up with primary care physician in the next 3 to 5 days. Follow-up with cardiology next 2 weeks PHYSICAL EXAMINATION: Patient is lying in the bed comfortably, no acute distress, awake alert and oriented.. HEENT: Normocephalic. Neck is supple. Pupils reactive. Nostrils clear. Oral cavity is moist. Neck reveals no JVD, carotid bruits, or thyromegaly. CHEST EXAMINATION: Trachea is central. Symmetrical expansion. Lung vo clear to auscultation and percussion. CARDIAC: Normal S1, S2 with no gallops. No murmurs ABDOMEN: Soft. Bowel sounds normal. No organomegaly. No abdominal bruits. Extremities: reveal no edema. No clubbing or cyanosis Neurologically awake, alert, oriented x3 with well-coordinated movements. No focal deficits noted Skin: No rash or skin lesions. Psychiatric: Coperative. Nonsuicidal Musculoskeletal: No joint swelling or deformity. Normal range of motion. Vital signs: Vital Signs Temp 98.4 F 02/26/24 09:16 Pulse 85 02/26/24 09:16 Resp 18 02/26/24 09:16 BP 103/83 02/26/24 09:16 Pulse Ox 99 02/26/24 09:16 FiO2 Patient Condition at Discharge: Fair Plan - Discharge Summary New Discharge Prescriptions: New levETIRAcetam [Keppra] 500 mg PO Q12HR #60 tab Continue Warfarin [Coumadin] 2.5 mg PO TUTH@2099 Warfarin [Coumadin] 5 mg PO SUMOWEFRSA@2099 Discharge Medication List Warfarin [Coumadin] 2.5 mg PO TUTH@209912/13/19 [History] Warfarin [Coumadin] 5 mg PO SUMOWEFRSA@209911/04/21 [History] levETIRAcetam [Keppra] 500 mg PO Q12HR #60 tab 02/26/24 [Rx] Follow up Appointment(s)/Referral(s): None,Stated [Primary Care Provider] - 1-2 days Tawanda Bush DO [STAFF PHYSICIAN] - 1 Week Patient Instructions/Handouts: Seizure/Epilepsy Discharge Instructions & Follow-Up Discharge Disposition: HOME SELF-CARE
== END 2024-02-26 12:45 | disposition home or self-care (01) | DRG 101 ==
LOC: EC 01:02 → 3SCARD 03:04
PROVIDERS: ADMIT Hospitalist; ATTEND Hospitalist
DX: R56.9 Unspecified convulsions (principal); E87.20 Acidosis, unspecified; I24.89 Other forms of acute ischemic heart disease; I48.3 Typical atrial flutter; I49.5 Sick sinus syndrome; I48.91 Unspecified atrial fibrillation; R55 Syncope and collapse; I37.1 Nonrheumatic pulmonary valve insufficiency; Z95.2 Presence of prosthetic heart valve; I07.1 Rheumatic tricuspid insufficiency; R29.810 Facial weakness; R47.81 Slurred speech; Z79.01 Long term (current) use of anticoagulants; Z82.0 Family history of epilepsy and other diseases of the nervous system
CPT/HCPCS: 36415; 70450; 70496; 70498; 70553; 80053; 81003; 83605; 83735; 83880; 84100; 84443; 84484; 85025; 85610; 85730; 93005; 93308; 94760; 95816; 96361; 96374; 99291

== ENCOUNTER 2024-06-08 05:30 | Inpatient (IN) | payer BC ==
[2024-06-08] MEDS ORDERED: SODIUM CHLORIDE 0.9% 1,000 ML BAG ONE ×2 (22:00→23:30)
[2024-06-09] MEDS ORDERED: SODIUM CHLORIDE 0.9% 1,000 ML BAG ONE (00:15)
[2024-06-09] MEDS ORDERED: LORazepam 2 MG/ML INJ ONE (00:40)
[2024-06-09] MEDS ORDERED: levETIRAcetam IV 500 MG/5 ML VIAL ONE (01:14)
[2024-06-09] MEDS ORDERED: LIDOCAINE VISCOUS 2% 15 ML CUP ONE (09:58)
[2024-06-09] MEDS ORDERED: HYDROcodone/APAP 5-325MG 1 EACH TAB ONE (18:28)
[2024-06-09] MEDS ORDERED: WARFARIN 5 MG TAB ONE (23:38)
[2024-06-10] MEDS ORDERED: MAG HYDROX/AL HYDROX/SIMETH 30 ML CUP ONE (02:30)
[2024-06-10] MEDS ORDERED: ACETAMINOPHEN ORAL SUSP 160 MG/5 ML CUP ONE (02:30)
[2024-06-10] MEDS ORDERED: diphenhydrAMINE ELIXIR 25 MG/10 ML CUP ONE (02:30)
[2024-06-10] MEDS ORDERED: ACETAMINOPHEN TAB 325 MG TAB ONE (07:41)
[2024-06-10] MEDS ORDERED: levETIRAcetam IV 500 MG/5 ML VIAL ONE (08:10)
[2024-06-10] MEDS ORDERED: LIDOCAINE 1% INJ 10MG/ML (20 ML MDV) ONE (09:30)
[2024-06-10] MEDS ORDERED: ceFAZolin 10 GM VIAL IVPB ONE (09:30)
[2024-06-10] MEDS ORDERED: SODIUM CHLORIDE 0.9% 500 ML BAG ONE (09:30)
[2024-06-10] MEDS ORDERED: SODIUM CHLORIDE 0.9% 50 ML BAG IV ONE (09:30)
[2024-06-10] MEDS ORDERED: MIDAZOLAM 2 MG/2 ML VIAL ONE (09:46)
--- NOTE | 2024-07-08 09:51 | XR ---
Elia Hackett A ID: [id number] : 1960 EXAMINATION TYPE: XR chest 1V DATE OF EXAM: 06/10/2024 COMPARISON: 09/21/2012 HISTORY: 64 year-old male shortness of breath TECHNIQUE: Single frontal view of the chest is obtained. FINDINGS: Median sternotomy wires are present. Heart normal size. Aorta and pulmonary vasculature wi thin normal limits. No consolidation or pleural effusion. IMPRESSION: No acute process seen.
--- NOTE | 2024-07-26 18:25 | CT ---
EXAM: CT Head Without Intravenous Contrast CLINICAL HISTORY: AMS TECHNIQUE: Axial computed tomography images of the head/brain without intravenous contrast. CTDI is 49.2 mGy and DLP is 1168.6 mGy-cm. This CT exam was performed using one or more of the following dose reduction techniques: automated exposure control, adjustment of the mA and/or kV according to patient size, and/or use of iterative reconstruction technique. COMPARISON: No relevant prior studies available. FINDINGS: Brain: The territorial menendez-white matter differentiation is maintained throughout. No acute intracranial hemorrhage. No midline shift or mass effect. Ventricles: The ventricles and sulci are commensurate with age. Bones/joints:Unremarkable. No acute fracture. Soft tissues:Unremarkable. Sinuses:Unremarkable as visualized. No acute sinusitis. Mastoid air cells:Unremarkable as visualized. No mastoid effusion. IMPRESSION: No acute intracranial hemorrhage. No midline shift or mass effect. Radiologist: Segundo Arriola MD Electronically Signed: 06/09/24 00:18 Study first marked ready to read at 23:26, study last marked ready to read at 23:26, initial results transmitted at 00:18 [facility]
== END 2024-06-10 17:02 | disposition home or self-care (01) | DRG 260 ==
LOC: UNDOADMIN 05:30 → DISRECOVER 05:30 → 3SCARD 05:30 → UNDODISIN 06-10 17:02
PROVIDERS: ADMIT Hospitalist; ATTEND Hospitalist
PROC: 0JH632Z Insertion of Monitoring Device into Chest Subcutaneous Tissue and Fascia, Percutaneous Approach (ICD-10-PCS; principal; 2024-06-10 08:49)
DX: I48.19 Other persistent atrial fibrillation (principal); G92.8 Other toxic encephalopathy; G93.41 Metabolic encephalopathy; G40.509 Epileptic seizures related to external causes, not intractable, without status epilepticus; E87.20 Acidosis, unspecified; Z79.01 Long term (current) use of anticoagulants; R15.9 Full incontinence of feces; R55 Syncope and collapse; Z79.899 Other long term (current) drug therapy; I49.5 Sick sinus syndrome
CPT/HCPCS: 33285; 70450; 71045; 80177; 87040; 96361; 96374; 96375; 99291

== ENCOUNTER → 2024-09-02 | Outpatient (CLI) | payer BC ==
[2024-09-02 11:25] LABS: HCT 44.8 % (39.6-50.0); HGB 15.1 g/dL (13.0-17.0); MCH 30.8 pg (27.0-32.0); MCHC 33.7 g/dL (32.0-37.0); MCV 91.4 FL (80.0-97.0); Mean Platelet Volume 9.7 FL (9.5-12.2); NRBC Per 100 WBC 0 X 10*3/uL (0.00-0.01); Platelet Count 247 X 10*3/uL (140-440); RDW 13.4 % (11.5-14.5); WBC 5.26 X 10*3/uL (4.50-10.00)
[2024-09-02 11:39] LABS: ALT 34 U/L (10-49); AST 27 U/L (14-35); Albumin 4.4 g/dL (3.8-4.9); Albumin/Globulin Ratio 1.91 Ratio (1.60-3.17); Alkaline Phosphatase 79 U/L (41-126); BUN/Creat Ratio 17.22 Ratio (12.00-20.00); Bilirubin, Conjugated <0.20 mg/dL (0.20-0.40); Bilirubin,Unconjugated >0.50 mg/dL (0.20-1.00); Blood Urea Nitrogen 15.5 mg/dL (9.0-27.0); Calcium 9.2 mg/dL (8.7-10.3); Carbon Dioxide 28.4 mmol/L (21.6-31.8); Chloride 102 mmol/L (96-109); Chol/HDL Ratio 4.15 Ratio; Globulin 2.3 g/dL (1.6-3.3); Glucose 95 mg/dL (70-110); LDL Cholesterol,Calculated 180.3 mg/dL (0.0-131.0); Potassium 4.4 mmol/L (3.5-5.5); Sodium 141 mmol/L (135-145); Total Bilirubin 0.7 mg/dL (0.3-1.2); Total Protein 6.7 g/dL (6.2-8.2)
== END | disposition home or self-care (01) ==
LOC: LABWHC1 07:10
PROVIDERS: ATTEND Internal Medicine Cardiovascular Disease
DX: I11.9 Hypertensive heart disease without heart failure (principal); I48.0 Paroxysmal atrial fibrillation; E78.2 Mixed hyperlipidemia; Z95.2 Presence of prosthetic heart valve
CPT/HCPCS: 36415; 80053; 80061; 82248; 85027; 86141